=== PATIENT | female | born 1950 | race Caucasian/White ===

== ENCOUNTER → 2020-01-26 09:20 | Outpatient (REF) | payer MEDICARE, SELFPAY ==
--- NOTE | 2020-01-26 | XR_ITS ---
EXAMINATION: RIGHT-SIDED CHEST WALL PAIN CLINICAL INFORMATION: Right-sided chest wall pain COMPARISON: Previous chest x-ray most recent from 2017 TECHNIQUE: Two-view chest FINDINGS: The cardiac silhouette does not appear enlarged. There is a large esophageal hernia that appears unchanged. Hilar and mediastinal contours are otherwise unremarkable. The lungs are clear. There is no pleural effusion or pneumothorax. There are degenerative changes of the thoracic spine. IMPRESSION: No evidence for acute disease in the chest. Large esophageal hernia and degenerative changes of the thoracic spine.
== END ==
LOC: HO.SL 09:20
PROVIDERS: PCP Internal Medicine; Visit Provider Internal Medicine
DX: R07.89 Other chest pain (principal); K44.9 Diaphragmatic hernia without obstruction or gangrene; M51.34 Other intervertebral disc degeneration, thoracic region; R06.81 Apnea, not elsewhere classified
CPT/HCPCS: 71046; 95806

== ENCOUNTER 2020-01-27 08:17 | Outpatient (REF) | payer MEDICARE, SELFPAY ==
--- NOTE | 2020-01-27 13:00 | MHC.AU.P13 ---
Adult Audiological Evaluation Date of Visit: 01/27/20 Reason for Appointment: Difficulty hearing in many listening situations. High-pitched, constant tinnitus bilaterally that started about 6 months ago. Patient reports itchy ear canals. Does patient feel they have a hearing loss?: Yes If Yes, Which Ear?: Both Ears When Was Hearing Difficulty First Noticed?: 6 Months Ago Has hearing been tested previously?: No Hearing Handicap Inventory HHIE SCORE: 38 Based on HHIE score, patient has: Severe perceived hearing handicap Ear History: Ear Deformity: None Reported Recent Ear Drainage: None Reported Recent Ear Pain: None Reported Family History of Hearing Loss?: No Recent Ear Infections: None Reported Ear Infections in Childhood: Both Ears History of Ear Wax Buildup: None Reported Previous Ear Surgery: None Reported Bothersome Tinnitus/Ringing/Noises in Ears: Both Ears Ear used on the phone: Left Ear Blocked/Full Sensation in Ear(s): None Reported 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 Skin in canal appeared red/dry Left Ear: Clear canals. Skin in canal appeared red/dry Tympanometry: Right Ear: Normal Middle Ear System (Type A) Left Ear: Negative Middle Ear Pressure (Type C) Hearing Evaluation: Transducer(s) Used: Insert Earphones Method: Conventional Audiometry Stimuli Used: Pure Tones Right Ear: Description of Hearing: Mild to severe sensorineural hearing loss Left Ear: Description of Hearing: Moderate rising to mild and sloping to profound mixed hearing loss Speech Recognition Threshold (SRT): Method Used: Recorded Lists Stimuli Used: Spondee Words Right Ear: 40 dBHL Left Ear: 45 dBHL Word Discrimination: Method: Recorded Lists Word Lists Used: NU-6 Right Ear: 80% at 70 dBHL (MCL). Increased to 80 dBHL- score improved to 88%. Left Ear: 96% at 70 dBHL Most Comfortable Level (MCL): Right Ear: 70 dBHL Left Ear: 70 dBHL Recommendations: Recommendations: Referral to Ear, Nose, and Throat is recommended to address asymmetrical hearing loss, with a mixed component in the left ear. Patient is interested in amplification. She would like to discuss this with her family first. If ready to proceed, she is encouraged to call our clinic to set up a hearing aid evaluation. Diagnosis: Primary Diagnosis: H90.A32 Mixed HL, Unilateral, Left Ear, W/Restricted Contralateral Services Performed: Services Performed: Comprehensive Audiological Evaluation (CPT 79469) Tympanometry (CPT 23431) Signature: Student/Clinical Fellow: No I have reviewed/agreed with student/fellow documentation: N/A Provider: Pastor Gambino, CCC-A
== END 2020-01-27 08:18 | disposition home or self-care (01) ==
LOC: HO.SH 08:17
PROVIDERS: Visit Provider Internal Medicine
DX: H90.A32 Mixed conductive and sensorineural hearing loss, unilateral, left ear with restricted hearing on the contralateral side (principal)
CPT/HCPCS: 92557; 92567

== ENCOUNTER 2021-01-04 10:01 | Outpatient (REF) | payer MEDICARE, SELFPAY ==
--- NOTE | ~2021-01-04 | FL_ITS ---
EXAMINATION: BARIUM SWALLOW AND UPPER GI CLINICAL INFORMATION: Dysphagia COMPARISON: Previous chest x-ray January 2020 TECHNIQUE: Barium swallow and upper GI were performed using thin and thick barium and effervescent granules. Barium tablet was also administered. FINDINGS: The swallowing mechanism is normal. No aspiration or penetration is seen. No esophageal mass, stricture or evidence of esophagitis is seen. There is a large esophageal hernia or intrathoracic stomach with the majority of the stomach in the chest. There is severe gastroesophageal reflux. No gastric mass, ulcer, or fold thickening is seen. There is no evidence of obstruction. The barium tablet passed into the stomach. Fluoroscopy time 2 minutes. DAP 77 rosa per centimeter squared. 57 saved fluoroscopic images and 5 overhead images. FL/FL upper GI w air w Ba Swallow IMPRESSION: Large esophageal hernia or intrathoracic stomach with the majority of the stomach located in the chest. Significant gastroesophageal reflux.
== END 2021-01-04 10:02 | disposition home or self-care (01) ==
LOC: HO.XRAY 10:01
PROVIDERS: PCP Internal Medicine; Visit Provider Internal Medicine
DX: R13.10 Dysphagia, unspecified (principal); K44.9 Diaphragmatic hernia without obstruction or gangrene
CPT/HCPCS: 74246

== ENCOUNTER → 2021-01-25 08:49 | Outpatient (BNVA) | payer MEDICARE, SELFPAY | PROVIDERS: PCP Internal Medicine; Visit Provider Surgery | DX: K44.9 Diaphragmatic hernia without obstruction or gangrene (principal); R13.10 Dysphagia, unspecified; K21.9 Gastro-esophageal reflux disease without esophagitis; R19.5 Other fecal abnormalities; Z87.891 Personal history of nicotine dependence; Z79.899 Other long term (current) drug therapy | CPT/HCPCS: 99212 ==

== ENCOUNTER 2021-01-30 09:42 | Outpatient (REF) | payer MEDICARE, SELFPAY ==
--- NOTE | ~2021-01-30 | CT_ITS ---
EXAMINATION: CT CHEST WITHOUT CONTRAST CLINICAL INFORMATION: Diaphragmatic hernia COMPARISON: Previous chest x-ray 01/26/[address] December 2016 TECHNIQUE: Multidetector volumetric CT imaging of the chest was done. Axial MIP volume rendering provided. Sagittal and coronal reformatted images were obtained. This CT examination was performed using dose optimization techniques as appropriate, variously including the following: *Automated exposure control *Adjustment of mA and/or kV according to patient size (this includes techniques or standardized protocols for targeted exams where dose is matched to indication/reason for exam; i.e. extremities or head) *Use of iterative reconstruction technique DLP: 240 mGy-cm FINDINGS: LUNGS: There is minimal subsegmental atelectasis at the lung bases. The lungs are otherwise clear. MEDIASTINUM: There is a large esophageal hernia or intrathoracic stomach with the majority of the stomach being located in the chest. This is increased from December 2016 exam. The esophageal hiatus appears widened. The heart does not appear enlarged. There is coronary artery calcification. There is no pericardial effusion. The thoracic aorta is normal in caliber. There are no enlarged hilar or mediastinal lymph nodes. There is a small partially calcified left thyroid nodule that is stable. PLEURA: There is no pleural effusion. No pleural mass or thickening. AXILLA: No lymphadenopathy. OSSEOUS STRUCTURES: There are degenerative changes of the spine. CT/CT chest wo con IMPRESSION: Large esophageal hernia or intrathoracic stomach. The majority of the stomach is in the chest. This is increased from 2017. Coronary artery calcification.
--- NOTE | ~2021-01-30 | CT_ITS ---
EXAMINATION: CT ABDOMEN AND PELVIS WITHOUT CONTRAST CLINICAL INFORMATION: Diaphragmatic hernia COMPARISON: None TECHNIQUE: Multidetector volumetric imaging was performed from the superior aspect of the liver through the pubic symphysis. Sagittal and coronal reformatted images were obtained on the technologist's workstation. This CT examination was performed using dose optimization techniques as appropriate, variously including the following: *Automated exposure control *Adjustment of mA and/or kV according to patient size (this includes techniques or standardized protocols for targeted exams where dose is matched to indication/reason for exam; i.e. extremities or head) *Use of iterative reconstruction technique DLP: 727 mGy-cm FINDINGS: LIVER, GALLBLADDER, AND BILIARY TREE: The liver is normal in size, shape, and attenuation. No focal hepatic lesion or biliary ductal dilatation is present. The gallbladder is unremarkable with no evidence of radiopaque gallstones, gallbladder wall thickening, or obvious pericholecystic inflammatory changes. PANCREAS: Unremarkable. SPLEEN: Unremarkable. ADRENAL GLANDS: Unremarkable. KIDNEYS AND URETERS: The kidneys are normal in size, shape, and attenuation. No hydronephrosis, hydroureter, or calculi seen. No perinephric stranding. BLADDER: Unremarkable. GASTROINTESTINAL TRACT: There is diverticulosis of the colon. No evidence of diverticulitis is seen. Small and large bowel is otherwise unremarkable. The appendix is unremarkable. There is a large esophageal hernia or intrathoracic stomach. The majority of the stomach is in the chest. ABDOMINAL WALL: There are postsurgical changes at anterior abdominal wall. There is a left inguinal hernia containing fat. LYMPH NODES: Normal. VASCULAR: Unremarkable. PELVIC VISCERA: Uterus appears to have been removed. No pelvic mass is seen. OSSEOUS STRUCTURES: There are degenerative changes of the spine and hip joints. CT/CT abdomen pelvis wo con IMPRESSION: Large esophageal hernia or intrathoracic stomach. Diverticulosis of the colon. Left inguinal hernia containing fat.
== END 2021-01-30 09:43 | disposition home or self-care (01) ==
LOC: HO.CT 09:42
PROVIDERS: PCP Internal Medicine; Visit Provider Surgery
DX: K44.9 Diaphragmatic hernia without obstruction or gangrene (principal)
CPT/HCPCS: 71250; 74176

== ENCOUNTER → 2021-02-01 08:56 | Outpatient (BNVA) | payer MEDICARE, SELFPAY | PROVIDERS: PCP Internal Medicine; Visit Provider Nurse Practitioner Family | DX: K21.9 Gastro-esophageal reflux disease without esophagitis (principal); R13.10 Dysphagia, unspecified | CPT/HCPCS: 99202 ==

== ENCOUNTER 2021-02-02 08:26 | Outpatient (REF) | payer MEDICARE, SELFPAY ==
[2021-02-02 08:35] LABS: MANUAL DIFF FLAG NO
[2021-02-02 09:24] LABS: Eosinophils Absolute Auto 0.1 X10*3/uL (0.0-0.4); Eosinophils Percent Auto 3.9 % (0-4); Hematocrit 41.4 % (37-47); Hemoglobin 13.3 g/dl (12.0-16.0); Imm Gran Abs Auto 0.01 X10*3/uL (0.00-0.03); Imm Gran Pct Auto 0.3 % (0.0-0.4); Lymphocytes Absolute Auto 1.1 X10*3/uL (1.2-4.9); Lymphocytes Percent Auto 36.1 % (20-40); Mean Corpuscular HGB Conc 32.1 g/dl (31.0-35.0); Mean Corpuscular Hemoglobin 28.6 pg (27.0-33.0); Mean Platelet Volume 9.2 fL (9.4-12.3); Monocytes Absolute Auto 0.4 X10*3/uL (0.1-1.2); Monocytes Percent Auto 12.3 % (2-11); Neutrophils Absolute Auto 1.4 X10*3/uL (2.0-8.3); Neutrophils Percent Auto 46.4 % (45-73); Platelet Count 305 X10*3/uL (160-400); Red Blood Count 4.65 X10*6/uL (4.20-5.50); Red Cell Distribution Width 15.5 % (11.0-16.0); White Blood Count 3.1 X10*3/uL (4.8-10.8)
[2021-02-02 09:37] LABS: Estimated Average Glucose 103 mg/dL; Hemoglobin A1c % 5.2 %
[2021-02-02 09:56] LABS: Alanine Aminotransferase 11 U/L (0-31); Alkaline Phosphatase 48 U/L (39-117); Anion Gap 9 (12-20); Aspartate Amino Transferase 13 U/L (5-31); Bilirubin Total 0.5 mg/dL (0.0-1.0); Blood Urea Nitrogen 12 mg/dL (9-16); Calcium 9.5 mg/dL (8.4-10.2); Carbon Dioxide 29 mmol/L (22-29); Chloride 108 mmol/L (96-108); Cholesterol 253 mg/dL; Estimated Glomerular Filt Rate > 60; Glucose Random 96 mg/dL (60-115); HDL Cholesterol 61 mg/dL; LDL Cholesterol Calculated 173 mg/dl; Potassium 4.8 mmol/L (3.3-5.1); Sodium 141 mmol/L (135-145); Total Protein 6.3 g/dL (6.5-8.0); Triglycerides 99 mg/dL
[2021-02-02 10:18] LABS: Free T4 (Free Thyroxine) 0.96 ng/dL (0.71-1.85); Thyroid Stimulating Hormone 2.99 uIU/mL (0.32-4.0)
[2021-02-04 08:36] LABS: Folate 12.6 ng/mL (> or = 4.0); Vitamin B12 651 pg/mL (200-900)
== END 2021-02-02 08:27 | disposition home or self-care (01) ==
LOC: HO.LAB 08:26
PROVIDERS: PCP Internal Medicine; Visit Provider Internal Medicine
DX: E78.00 Pure hypercholesterolemia, unspecified (principal); K21.9 Gastro-esophageal reflux disease without esophagitis; R73.02 Impaired glucose tolerance (oral)
CPT/HCPCS: 36415; 80053; 80061; 82306; 82607; 82746; 83036; 84439; 84443; 85025

== ENCOUNTER 2021-02-05 10:31 | Day surgery (SDC) | payer MEDICARE, SELFPAY ==
--- NOTE | 2021-02-01 14:00 | HO.ANESPROP2 ---
Documented by User: Naina Anderson NP 02/01/21 14:01 HPI - Anesthesia Eval Consult details Narrative: 70yo F for Upper Endoscopy Per Thoracic note: 70-year-old woman with a giant paraesophageal hernia that is incarcerated.? Her barium study on 01/04/2021 showed the entire stomach in the chest but possibly some organoaxial rotation.? There is significant reflux also appreciated on barium study.? She did have a CT scan in 2017 which I reviewed showing also a paraesophageal hernia at that time with maybe half the stomach in the chest.? Denies SOB/CP by phone eval. Case reviewed with Dr Charlie VILLALOBOS Active Problems Active Problems: All Active Problems (Updated 02/01/21 @ 09:28 by Gricel Dillon, [facility]) Hypertension (Acute) Hypercholesterolemia (Acute) Impaired glucose tolerance (Acute) Obstructive sleep apnea (Acute) Asthma (Acute) Tracheobronchitis (Acute) Paraesophageal hernia (Acute) Dysphagia (Acute) GERD (gastroesophageal reflux disease) (Acute) Fatty liver (Acute) Guaiac + stool (Acute) Obesity (Acute) Past Medical History Medical History Asthma GERD (gastroesophageal reflux disease) Hypercholesterolemia Hypertension Obesity Obstructive sleep apnea Paraesophageal hernia Thyroid nodule Tubular adenoma of colon Family History Family History Father Prostate cancer Mother Lung cancer Breast cancer Son No problems noted. Surgical History Surgical History History of arthroplasty of left knee History of section History of colonoscopy History of esophagogastroduodenoscopy (EGD) History of knee replacement procedure of right knee History of total abdominal hysterectomy and bilateral salpingo-oophorectomy History of ventral hernia repair S/P thyroid biopsy Social History Social History Housing: Apartment Alcohol intake: current Patient Tobacco Use Status: Former Tobacco user Quit Date: quit 40 yrs ago Tobacco use type: Cigarette Years Smoked: quit 1981 e-Cigarette/Vaping Use: Never Used Second Hand Smoke Exposure: No Use of substances other than those prescribed or required for medical reasons: No Are you DNR?: No Advance Directives: No Advance Directives Information Provided: Yes Patient : No service: No Current occupational status: retired Meds Allergies Allergy/AdvReac Type Severity Reaction Status Date / Time atorvastatin [From LIPITOR] Allergy Unknown LEG CRAMPS Verified 02/01/21 09:04 simvastatin Allergy Unknown leg cramps Verified 02/01/21 09:04 Home Medications Medication Instructions Recorded Confirmed Last Taken Type acetaminophen 325 mg tablet 325 mg PO Q6H PRN tab 03/30/20 01/25/21 Unknown History (Tylenol) albuterol sulfate 2.5 mg INHALATION Q4-6H PRN 03/30/20 01/25/21 Unknown History albuterol sulfate 90 mcg/actuation 2 puff INHALATION Q4-6H PRN 03/30/20 01/25/21 Unknown History aerosol inhaler (ProAir HFA) ascorbate calcium (vitamin C) 500 500 mg PO DAILY 03/30/20 01/25/21 Unknown History mg tablet ferrous sulfate 325 mg (65 mg 325 mg PO DAILY 03/30/20 01/25/21 Unknown History iron) tablet (Feosol) omeprazole 20 mg capsule,delayed 20 mg PO DAILY 03/30/20 01/25/21 Unknown History release pravastatin 80 mg tablet 80 mg PO DAILY 03/30/20 01/25/21 Unknown History Exam Exam Date and Time: February 01, 2021 1400 Assessment and Plan Assessment Anesthesia Assessment: Chart Reviewed Documented by User: Diya Jackson MD 02/05/21 12:05 [facility] Past Medical History Medical History Asthma GERD (gastroesophageal reflux disease) Hypercholesterolemia Hypertension Obesity Obstructive sleep apnea Paraesophageal hernia Thyroid nodule Tubular adenoma of colon Functional capacity: independent ambulation Patient : No Family History Family History Father Prostate cancer Mother Lung cancer Breast cancer Son No problems noted. Family history of problems with anesthesia: No Surgical History Surgical History History of arthroplasty of left knee History of section History of colonoscopy History of esophagogastroduodenoscopy (EGD) History of knee replacement procedure of right knee History of total abdominal hysterectomy and bilateral salpingo-oophorectomy History of ventral hernia repair S/P thyroid biopsy History of Problems with Anesthesia: No Social History Social History Housing: Apartment Alcohol intake: current Patient Tobacco Use Status: Former Tobacco user Quit Date: quit 40 yrs ago Tobacco use type: Cigarette Years Smoked: quit 1981 e-Cigarette/Vaping Use: Never Used Second Hand Smoke Exposure: No Use of substances other than those prescribed or required for medical reasons: No Are you DNR?: No Advance Directives: No Advance Directives Information Provided: Yes Patient : No service: No Current occupational status: retired [employer] Allergies Allergy/AdvReac Type Severity Reaction Status Date / Time atorvastatin [From LIPITOR] Allergy Unknown LEG CRAMPS Verified 02/01/21 09:04 simvastatin Allergy Unknown leg cramps Verified 02/01/21 09:04 Home Medications Medication Instructions Recorded Confirmed Last Taken Type acetaminophen 325 mg tablet 325 mg PO Q6H PRN tab 03/30/20 01/25/21 Unknown History (Tylenol) albuterol sulfate 2.5 mg INHALATION Q4-6H PRN 03/30/20 01/25/21 Unknown History albuterol sulfate 90 mcg/actuation 2 puff INHALATION Q4-6H PRN 03/30/20 01/25/21 Unknown History aerosol inhaler (ProAir HFA) ascorbate calcium (vitamin C) 500 500 mg PO DAILY 03/30/20 01/25/21 Unknown History mg tablet ferrous sulfate 325 mg (65 mg 325 mg PO DAILY 03/30/20 01/25/21 Unknown History iron) tablet (Feosol) omeprazole 20 mg capsule,delayed 20 mg PO DAILY 03/30/20 01/25/21 Unknown History release pravastatin 80 mg tablet 80 mg PO DAILY 03/30/20 01/25/21 Unknown History Exam Airway Mallampati Class: III TM Dist: >3cm Neck ROM: Full Heart: RRR Lungs: CTA Assessment and Plan Final Anesthetic Review Family History of Problems with Anesthesia: No History of Problems with Anesthesia: No
--- NOTE | 2021-02-05 | ECG_ITS ---
Test Reason : PRE OP Blood Pressure : / mmHG Vent. Rate : 063 BPM Atrial Rate : 063 BPM P-R Int : 212 ms QRS Dur : 094 ms QT Int : 418 ms P-R-T Axes : 036 044 026 degrees QTc Int : 427 ms Sinus rhythm with 1st degree A-V block Otherwise normal ECG When compared with ECG of 26-SEP-2004 12:10, No significant change was found Referred By: Naina Anderson Electronically Signed By:BOO YAO MD
[2021-02-05 11:16] LABS: Hematocrit 43.2 % (37-47); Hemoglobin 14.1 g/dl (12.0-16.0); Mean Corpuscular HGB Conc 32.6 g/dl (31.0-35.0); Mean Corpuscular Volume 88.7 fL (80-98); Mean Platelet Volume 8.9 fL (9.4-12.3); Platelet Count 290 X10*3/uL (160-400); Red Blood Count 4.87 X10*6/uL (4.20-5.50); Red Cell Distribution Width 15.3 % (11.0-16.0); White Blood Count 3.9 X10*3/uL (4.8-10.8)
[2021-02-05 11:23] VITALS: BP 139/79; PULSE 64; RESP 16; TEMP 36.3; O2SAT 97; BMI 40.0
[2021-02-05 11:25] LABS: Anion Gap 10 (12-20); Blood Urea Nitrogen 13 mg/dL (9-16); Calcium 9.5 mg/dL (8.4-10.2); Carbon Dioxide 28 mmol/L (22-29); Chloride 108 mmol/L (96-108); Estimated Glomerular Filt Rate > 60; Glucose Fasting 98 mg/dL (60-99); Potassium 4.4 mmol/L (3.3-5.1); Sodium 142 mmol/L (135-145)
[2021-02-05] MEDS: Lactated Ringers 1,000 ML 100 ML IVCONT (11:33)
--- NOTE | 2021-02-05 11:44 | MHC.SHP ---
Pre-Procedural Eval Section A Date of Service: 02/05/21 The patient is an INPATIENT: No Changes since office visit: Yes Patient answered all questions; No Cold of Flu in the past 2 weeks, No New Medical Problems and No Changes in Medication The History & Physical has been completed within 30 days and I have reviewed it.: Yes Section B Chief Complaint: Dysphagia Allergies: Allergies Allergy/AdvReac Type Severity Reaction Status Date / Time atorvastatin [From LIPITOR] Allergy Unknown LEG CRAMPS Verified 02/01/21 09:04 simvastatin Allergy Unknown leg cramps Verified 02/01/21 09:04 Plan I have reviewed the history and physical and performed a pertinent physical examination on my patient. No changes have occurred unless specified.
--- NOTE | 2021-02-05 11:48 | P.BOP_ITS ---
Brief Operative Note Date of Service: 02/05/21 Pre-op diagnosis: GERD, dysphagia, giant paraesophageal hernia that is incarcerated, pre-op EGD prior to surgical repair Post-op diagnosis: same Procedure: FLEXIBLE TRANSORAL UPPER GASTROINTESTINAL ENDOSCOPY WITH BIOPSIES Consent: Indications for the procedure and potential complications of bleeding, perforation, reaction to medications and missed diagnosis were discussed with the patient and informed consent was obtained. Instrument: Olympus GIF H 190 mid size upper endoscope Monitoring: Vital signs and clinical assessment, continuous EKG monitoring, Pulse oximetry, Carbon Dioxide monitoring and blood pressure monitoring were done throughout the procedure. Procedure: The patient was placed in the left lateral decubitis position and pre-procedure medications were administered and a bite block was placed. The endoscope was inserted into the mouth and advanced under direct vision to the third part of duodenum. A careful inspection was made as the upper endoscope was withdrawn including a retroflexed examination of the proximal stomach; Findings and interventions are described below. Findings: Larynx: Normal Esophagus: GE junction at 30 cms, large hiatal hernia 30 to 40 cms. Patchy erythema in the hiatal hernia sac without ulcers or erosions. Irregular Z line - biopsied to check for Gomez's. Stomach: Mild gastric antral erythema. Biopsies were obtained. Grade 4 flap valve on retroflexed examination of the cardia. Duodenum: Normal bulb and descending duodenum Intervention: Biopsies as noted above Impression and Post Procedure Diagnosis: Endoscopy Findings: ESOPHAGUS: GE junction at 30 cms, large hiatal hernia 30 to 40 cms. Patchy erythema in the hiatal hernia sac without ulcers or erosions. Irregular Z line - biopsied to check for Gomez's. STOMACH: Mild gastric antral erythema. Biopsies were obtained. Grade 4 flap valve on retroflexed examination of the cardia. Plan: Await pathology results Patient has an appointment on 02/12/21 in the GI Clinic with Zully Dillon NP. Above findings were reviewed with the patient and Hiatal Hernia handout was given in the discharge area Surgeon: Jake Roa MD Was an Central Office Trouble Shooter used for this Procedure?: No Estimated blood loss (mL): 0 Pathology: other (A. gastric antrum biopsies B. G-E junction, R/O Gomez's) Condition: stable Disposition: PACU
--- NOTE | 2021-02-05 11:49 | P.OP_ITS ---
Operative Note Operative Note Date of Service: 02/05/21 Narrative: Pre-op diagnosis:?GERD, dysphagia, giant paraesophageal hernia that is incarcerated, pre-op EGD prior to surgical repair Post-op diagnosis:?same Procedure:? FLEXIBLE TRANSORAL UPPER GASTROINTESTINAL ENDOSCOPY WITH BIOPSIES Consent:?Indications for the procedure and potential complications of bleeding, perforation, reaction to medications and missed diagnosis were discussed with the patient and informed consent was obtained. Instrument:?Olympus GIF H 190 mid size upper endoscope Monitoring: Vital signs and clinical assessment, continuous EKG monitoring, Pulse oximetry, Carbon Dioxide monitoring and blood pressure monitoring were done throughout the procedure. Procedure:?The patient was placed in the left lateral decubitis position and pre-procedure medications were administered and a bite block was placed. The endoscope was inserted into the mouth and advanced under direct vision to the third part of duodenum. A careful inspection was made as the upper endoscope was withdrawn including a retroflexed examination of the proximal stomach; Findings and interventions are described below. Findings: Larynx:? Normal Esophagus: GE junction at 30 cms, large hiatal hernia 30 to 40 cms.? Patchy erythema in the hiatal hernia sac without ulcers or erosions.? Irregular Z line - biopsied to check for Gomez's. Stomach:?Mild gastric antral erythema. Biopsies were obtained. Grade 4 flap valve on retroflexed examination of the cardia. Duodenum: Normal bulb and descending duodenum Intervention:?Biopsies as noted above Impression and Post Procedure Diagnosis: Endoscopy Findings: ESOPHAGUS: GE junction at 30 cms, large hiatal hernia 30 to 40 cms.? Patchy erythema in the hiatal hernia sac without ulcers or erosions.? Irregular Z line - biopsied to check for Gomez's. STOMACH: Mild gastric antral erythema. Biopsies were obtained. Grade 4 flap valve on retroflexed examination of the cardia. Plan: Await pathology results Patient has an appointment on 02/12/21 in the GI Clinic with Zully Dillon NP. Above findings were reviewed with the patient and Hiatal Hernia handout was given in the discharge area Surgeon:?Jake Roa MD Was an Program Development Manager used for this Procedure?:?No Estimated blood loss (mL):?0 Pathology:?other (A. gastric antrum biopsies? B. G-E junction, R/O Gomez's) Condition:?stable Disposition:?PACU
[2021-02-05 12:20] VITALS: BP 106/66; PULSE 698; RESP 16; TEMP 36.3; O2SAT 93
[2021-02-05 12:49] VITALS: BP 110/74; PULSE 63; RESP 16; TEMP 36.3; O2SAT 99
--- NOTE | 2021-02-06 09:23 | HO.POSTANES ---
Post Anesthesia Evaluation Post Anesthesia Evaluation Anesthesia: Monitored Mental Status: Awake Pain Control: Satisfactory Nausea/Vomiting: None Hydration: Adequate Anesthesia-Related Issues: No Anes. Related Issues
== END 2021-02-05 13:28 | disposition home or self-care (01) ==
PROVIDERS: Nurse Practitioner; PCP Internal Medicine; Visit Provider Internal Medicine Gastroenterology
PROC: 0DJ08ZZ Inspection of Upper Intestinal Tract, Via Natural or Artificial Opening Endoscopic (ICD-10-PCS; CPT 43235; principal; 2021-02-05 14:50)
DX: R13.10 Dysphagia, unspecified (principal); K21.9 Gastro-esophageal reflux disease without esophagitis; K44.0 Diaphragmatic hernia with obstruction, without gangrene; K29.50 Unspecified chronic gastritis without bleeding; K76.0 Fatty (change of) liver, not elsewhere classified; I10 Essential (primary) hypertension; J45.909 Unspecified asthma, uncomplicated; G47.33 Obstructive sleep apnea (adult) (pediatric); Z99.89 Dependence on other enabling machines and devices; Z79.899 Other long term (current) drug therapy; Z88.8 Allergy status to other drugs, medicaments and biological substances; Z87.891 Personal history of nicotine dependence
CPT/HCPCS: 43239; 36415; 80048; 85027; 88305; 88342; 93005

== ENCOUNTER 2021-02-06 08:27 | Outpatient (REF) | payer MEDICARE, SELFPAY ==
--- NOTE | ~2021-02-06 | MM_ITS ---
EXAMINATION: MM SCREENING DIGITAL BREAST TOMOSYNTHESIS, BILATERAL CLINICAL INFORMATION: Screening. Asymptomatic. The lifetime risk of breast cancer based on the Tyrer-Cuzick Model is 6%. COMPARISON: Mammography: 01/04/2019, 10/29/2016 TECHNIQUE: Digital breast tomosynthesis is performed in both the craniocaudal and mediolateral oblique views along with computer-aided detection (CAD). Synthesized 2D images are generated from the tomosynthesis. Additional views are provided: Bilateral MLO, exaggerated left CC, right cleavage. FINDINGS: There are scattered areas of fibroglandular density (ACR BI-RADS breast composition Category b). There are no significant masses, abnormal calcifications, or other abnormalities. There is no developing density. Again, there is biopsy clip marker anterior 12:00 periareolar left breast. There are again scattered bilateral benign round and rim and dermal calcifications. No significant changes. MM/MM tomosynthesis screening BI IMPRESSION: No mammographic evidence of malignancy. ASSESSMENT: BI-RADS 2: Benign RECOMMENDATION: Routine annual mammography screening. This patient's information was entered into a reminder system with a target due date for their next mammogram.
== END 2021-02-06 08:28 | disposition home or self-care (01) ==
LOC: HO.MAMMO 08:27
PROVIDERS: PCP Internal Medicine; Visit Provider Internal Medicine
DX: Z12.31 Encounter for screening mammogram for malignant neoplasm of breast (principal)
CPT/HCPCS: 77063; 77067

== ENCOUNTER → 2021-03-08 08:29 | Outpatient (BNVA) | payer MEDICARE, SELFPAY | PROVIDERS: Referring Provider Internal Medicine; Visit Provider Nurse Practitioner Family | DX: K21.00 Gastro-esophageal reflux disease with esophagitis, without bleeding (principal); R13.10 Dysphagia, unspecified | CPT/HCPCS: 99212 ==

== ENCOUNTER 2021-04-22 12:53 | Outpatient (REF) | payer MEDICARE, SELFPAY | END 2021-04-22 12:54 | disposition home or self-care (01) | LOC: HO.LAB 12:53 | PROVIDERS: Visit Provider Hospitalist | DX: Z20.822 Contact with and (suspected) exposure to COVID-19 (principal); J06.9 Acute upper respiratory infection, unspecified | CPT/HCPCS: U0003; U0005 ==

== ENCOUNTER → 2021-08-06 08:31 | Outpatient (BNVA) | payer MEDICARE, SELFPAY | PROVIDERS: PCP Internal Medicine; Referring Provider Internal Medicine; Visit Provider Nurse Practitioner Family | DX: K44.9 Diaphragmatic hernia without obstruction or gangrene (principal); R13.10 Dysphagia, unspecified; K21.9 Gastro-esophageal reflux disease without esophagitis; I10 Essential (primary) hypertension; E78.00 Pure hypercholesterolemia, unspecified; E66.9 Obesity, unspecified; Z68.41 Body mass index [BMI] 40.0-44.9, adult; Z87.891 Personal history of nicotine dependence; Z88.8 Allergy status to other drugs, medicaments and biological substances | CPT/HCPCS: 99212 ==

== ENCOUNTER 2022-02-11 08:40 | Outpatient (REF) | payer MEDICARE, SELFPAY ==
--- NOTE | ~2022-02-11 | MM_ITS ---
EXAMINATION: MM SCREENING DIGITAL BREAST TOMOSYNTHESIS, BILATERAL CLINICAL INFORMATION: Screening. Asymptomatic. The lifetime risk of breast cancer based on the Tyrer-Cuzick Model is 5%. COMPARISON: Mammography: 02/06/2021, 01/04/2019, 10/29/2016 TECHNIQUE: Digital breast tomosynthesis is performed in both the craniocaudal and mediolateral oblique views along with computer-aided detection (CAD). Synthesized 2D images are generated from the tomosynthesis. Additional right CC x2, left CC, and bilateral MLO views are provided. FINDINGS: There are scattered areas of fibroglandular density (ACR BI-RADS breast composition Category b). There are no significant masses, abnormal calcifications, or other abnormalities. No developing density or interval architectural abnormality. There is a biopsy clip marker again seen anterior left breast. There are scattered round, rim, and dermal calcifications. The axilla are unremarkable. No significant changes. MM/MM tomosynthesis screening BI IMPRESSION: No mammographic evidence of malignancy. ASSESSMENT: BI-RADS 2: Benign RECOMMENDATION: Routine annual mammography screening. This patient's information was entered into a reminder system with a target due date for their next mammogram.
== END 2022-02-11 08:41 | disposition home or self-care (01) ==
LOC: HO.MAMMO 08:40
PROVIDERS: PCP Internal Medicine; Visit Provider Internal Medicine
DX: Z12.31 Encounter for screening mammogram for malignant neoplasm of breast (principal)
CPT/HCPCS: 77063; 77067

== ENCOUNTER 2023-02-17 08:55 | Outpatient (REF) | payer MEDICARE, SELFPAY ==
--- NOTE | ~2023-02-17 | MM_ITS ---
EXAMINATION: MM SCREENING DIGITAL BREAST TOMOSYNTHESIS, BILATERAL CLINICAL INFORMATION: Screening. Asymptomatic. COMPARISON: Mammography: This study is compared with prior exams dating back to 2018. TECHNIQUE: Digital breast tomosynthesis is performed in both the craniocaudal and mediolateral oblique views along with computer-aided detection (CAD). Synthesized 2D images are generated from the tomosynthesis. FINDINGS: There are scattered areas of fibroglandular density (ACR BI-RADS breast composition Category b). There is a focal asymmetry in the upper outer quadrant of the left breast at a middle depth. Additional mammographic imaging of this finding is advised. There is tissue marker in the left breast from prior benign percutaneous biopsy. It lies in the anterior depth. In the right breast, no are no significant masses, abnormal calcifications, or other abnormalities. MM/MM tomosynthesis screening BI IMPRESSION: Focal asymmetry of the upper outer quadrant of the left breast warrants additional mammographic evaluation. Sonography is at the discretion of the diagnostic radiologist. No mammographic signs of malignancy right breast. ASSESSMENT: BI-RADS BI-RADS 0 - Incomplete: Needs additional Imaging. RECOMMENDATION: 1. Additional views of the left 2. Targeted ultrasound if warranted after review of the additional views. 3. Radiology department staff will contact the patient for additional imaging. Additional Imaging required This examination should not preclude the clinical evaluation of a suspicious palpable abnormality. This patient's information was entered into a reminder system with a target due date for their next mammogram.
== END 2023-02-17 08:56 | disposition home or self-care (01) ==
LOC: HO.MAMMO 08:55
PROVIDERS: Visit Provider Internal Medicine
DX: Z12.31 Encounter for screening mammogram for malignant neoplasm of breast (principal)
CPT/HCPCS: 77063; 77067

== ENCOUNTER → 2023-02-17 09:15 | Outpatient (BNV) | payer MEDICARE, SELFPAY | PROVIDERS: Visit Provider Radiology Diagnostic Radiology | DX: Z12.31 Encounter for screening mammogram for malignant neoplasm of breast (principal) | CPT/HCPCS: 77063; 77067 ==

== ENCOUNTER 2023-04-03 07:03 | Outpatient (AMB) | payer MEDICARE, SELFPAY ==
[2023-04-03 07:14] VITALS: BP 130/82; PULSE 74; TEMP 36.3; O2SAT 95; BMI 43.7
--- NOTE | 2023-04-03 07:14 | A.OFFPC_ITS ---
Vital Signs 04/03/23 07:14 Height 5 ft 3 in Weight 247 lb BMI 43.7 BP 130/82 Blood Pressure Location Lt brachial Position Sitting Pulse 74 Pulse Source Pulse Oximeter Temp 97.3 F Pulse Oximetry (%) 95 Oxygen Delivery Method Room Air Intake Visit Reasons: cough for 3 weeks Allergies atorvastatin [From LIPITOR] Allergy (Unknown, Verified 04/03/23 07:15) LEG CRAMPS simvastatin Allergy (Unknown, Verified 04/03/23 07:15) leg cramps Tobacco use date assessed: 04/03/23 Fall risk assessment: No Falls in past year Last assessed Fall Risk: 04/03/23 Dental Screening Dental Screen Date: 04/03/23 Did you have a dental visit in the last 12 months?: Yes Did you have a dental problem in the last 6 months where you did not have access to dental care?: No Was dental information given to patient?: Patient has dentist HPI HPI Comments History of Present Illness Details 72-year-old female past medical history significant for GERD, fatty liver, asthma, MICHELLE on CPAP, hypercholesteremia, hypertension. Patient of has not been seen in 2 years. Patient presents today for cough x3 weeks. Patient reports recently sick at home with pneumonia. Patient states productive cough with green sputum. Denies nasal congestion,fevers, chills. Patient reports using albuterol more frequently 4-5x a day and advair BID. [facility] Medical History (Updated 05/29/22 @ 17:32 by Michelle Rosenberg MD) Exposure to COVID-19 virus Tubular adenoma of colon Obstructive sleep apnea Hypercholesterolemia Obesity GERD (gastroesophageal reflux disease) Hypertension Thyroid nodule Asthma Paraesophageal hernia Surgical History S/P thyroid biopsy History of esophagogastroduodenoscopy (EGD) History of colonoscopy History of arthroplasty of left knee History of knee replacement procedure of right knee History of section History of total abdominal hysterectomy and bilateral salpingo-oophorectomy History of ventral hernia repair Family History (Updated 04/03/23 @ 07:15 by Tena Ambrocio CMA) Father Prostate cancer Mother Lung cancer Breast cancer Son No problems noted. Social History Housing: Apartment Alcohol intake: current Patient Tobacco Use Status: Former Tobacco user Quit Date: quit 40 yrs ago Tobacco use type: Cigarette Years Smoked: quit 1981 e-Cigarette/Vaping Use: Never Used Second Hand Smoke Exposure: No service: No Current occupational status: retired Cognitive needs: No Hearing needs: No Vision needs: No Questionnaire PHQ-9 Over the last 2 weeks, how often have you been bothered by any of the following problems? 1. Little interest or pleasure in doing things: not at all 2. Feeling down, depressed, or hopeless: not at all 3. Trouble falling or staying asleep, or sleeping too much: not at all 4. Feeling tired or having little energy: not at all 5. Poor appetite or overeating: not at all 6. Feeling bad about yourself - or that you are a failure or have let yourself or your family down: not at all 7. Trouble concentrating on things, such as reading the newspaper or watching television: not at all 8. Moving or speaking so slowly that other people could have noticed. Or the opposite - being so fidgety or restless that you have been moving around a lot more than usual: not at all 9. Thoughts that you would be better off or of hurting yourself in some way: not at all Total score: 0 Source: Developed by Drs. Robbin Parada, Jumana Gibson, Willard Barber and colleagues, with an educational kelvin from [employer]. Thrive Questionnaire Date Thrive assessed: 04/03/23 I am a: Patient What is your living situation today?: I have a steady place to live Within the past 12 months, did the food you bought not last and you didn't have the money to get more?: Never true Within the past 12 months, did you worry whether your food would run out before you got money to buy more?: Never true Do you have trouble paying for medicines?: No Do you have trouble getting transportation to medical appointments?: No Do you have trouble paying your heating and electricity bill?: No Do you have trouble taking care of your child, family member or friend?: No Do you have trouble with day-to-day activities such as bathing, preparing meals, shopping, managing finances, etc.?: No Are you currently unemployed and looking for a job?: No Are you interested in more education?: No Currently or been in a relationship where the following occur: no concerns reported AUDIT C Alcohol Use Questionnaire (AUDIT-C) 1. How often do you have a drink containing alcohol?: Monthly or less 2. How many drinks containing alcohol do you have on a typical day when you are drinking?: 1 or 2 3. How often do you have six or more drinks on one occasion?: Never Total Score: 1 BENJAMIN-7 AMB Questionnaire BENJAMIN-7 Date BENJAMIN - 7 assessed: 04/03/23 Feeling nervous, anxious, or on edge: 0 = Not at all Not being able to stop or control worryin = Not at all Worrying too much about different things: 0 = Not at all Trouble relaxin = Not at all Being so restless that it is hard to sit still: 0 = Not at all Becoming easily annoyed or irritable: 0 = Not at all Feeling afraid as if something awful might happen: 0 = Not at all Total BENJAMIN-7 score (0-4 normal; 5-9 mild; 10-14 moderate; 15-21 severe): 0 Source: Developed by Drs. Robbin Parada, Jumana Gibson, Willard Barber and colleagues, with an educational kelvin from [employer]. Review of Systems Const Denies chills, Denies fatigue, Denies fever(s) and Denies poor appetite Eyes Denies no additional complaints ENT Reports Normal hearing present Card Denies chest pain, Denies syncope, Denies rapid heart rate and Denies dyspnea Resp Reports change in phlegm color, Reports chest congestion, Reports cough, Denies dyspnea and Reports wheezing GI Denies change in stool character, Denies constipation, Denies diarrhea, Denies nausea and Denies vomiting Denies urinary frequency, Denies dysuria and Denies urinary urgency Neuro Reports Normal hearing present, Denies confusion and Denies syncope Psych Denies confusion Endo Denies fatigue Aller/Immun Reports wheezing Physical exam (Primary Care) Vital Signs: Last Vital Signs Temp 97.3 F 04/03/23 07:14 Pulse 74 04/03/23 07:14 BP 130/82 04/03/23 07:14 Pulse Ox 95 04/03/23 07:14 Oxygen Delivery Method Room Air 04/03/23 07:14 BMI result Body Mass Index 43.7 Tobacco/Smoking Status: Tobacco use Status Tobacco use date assessed 04/03/23 04/03/23 07:20 Patient Tobacco Use Status Former Tobacco user 04/03/23 07:20 Tobacco use type Cigarette 04/03/23 07:20 e-Cigarette/Vaping Use Never Used 04/03/23 07:20 PHQ-9: PHQ-9 Score PHQ-9: Total score 0 04/03/23 07:28 Thrive Assessment: Date of Thrive Assessment Date Thrive assessed 04/03/23 04/03/23 07:20 Currently or been in a relationship where the following occur: no concerns reported Const General: No confusion Orientation/consciousness: No confusion Neuro General: No confusion Cranial nerves: Yes Normal hearing present Assessment and Plan Assessment & Plan (1) URI (upper respiratory infection): Code(s): J06.9 - Acute upper respiratory infection, unspecified Plan: Azythromycin sent to patients pharmarcy for URI and tessalon pearls for cough. Sings and symptoms reviewed with patient when to follow up or seek medical attention. If no improvement on antibiotics patient advised to call office to follow-up for chest x-ray. Patient agreeable to plan of care. (2) Asthma exacerbation: Code(s): J45.901 - Unspecified asthma with (acute) exacerbation Plan: Prednisone taper sent to patient's pharmacy for asthma exacerbation secondary to upper respiratory infection. Albuterol refill sent. 5 and symptoms reviewed with patient when to follow-up or seek medical attention. Plan Keep scheduled physical with PCP in May or follow-up sooner if needed. Medications: New azithromycin For 250 mg dose pack: take 500 mg today (day 1), then 250 mg for 4 days (days 2-5) PO 6 tabs 0RF benzonatate 100 mg PO TID PRN 30 caps 0RF cough Refilled prednisone 4 tabs QD x 2 days then 3 tabs QD x 2 days then 2 tabs Qd x 2 days then 1 tab QD x 2 days PO daily; 20 tabs 0RF J45.909 - Unspecified asthma, uncomplicated albuterol sulfate 90 mcg/actuation (ProAir HFA) 2 puffs inhalation Q4-6H PRN 8.5 grams 0RF shortness of breath or wheezing Coding Level of Care Code Est Pt Level 3 (61219) Diagnoses URI (upper respiratory infection) J06.9 Asthma exacerbation J45.901
== END 2023-04-03 07:34 | disposition home or self-care (01) ==
PROVIDERS: PCP Internal Medicine; Visit Provider Nurse Practitioner Family
DX: J06.9 Acute upper respiratory infection, unspecified (principal); J45.901 Unspecified asthma with (acute) exacerbation
CPT/HCPCS: 99213

== ENCOUNTER 2023-04-06 14:18 | Outpatient (REF) | payer MEDICARE, SELFPAY ==
--- NOTE | ~2023-04-06 | US_ITS ---
EXAMINATION: MM DIAGNOSTIC DIGITAL BREAST TOMOSYNTHESIS, LEFT US BREAST LIMITED, LEFT MAMMOGRAPHY: CLINICAL INFORMATION: Evaluate focal asymmetry upper outer quadrant left breast seen on screening exam. COMPARISON: Mammography: Screening mammography 02/17/2023, 02/11/2022, 02/06/2021, and dating back to 2017. TECHNIQUE: Digital breast tomosynthesis is performed in the following views: Left 3-D full-field ML view, left 3-D CC spot compression view, and left MLO spot compression views x2. Left breast ultrasound also performed. FINDINGS: There are scattered areas of fibroglandular density (ACR BI-RADS breast composition Category b). There are no persistent masses, areas of architectural distortion, or suspicious calcifications. The focal asymmetry in the upper outer quadrant of the left breast effaces on diagnostic views, consistent with superimposition artifact of normal breast tissue. There is a tissue marker in the anterior left breast from prior benign needle biopsy. ULTRASOUND: CLINICAL INFORMATION: As above. COMPARISON: None TECHNIQUE: Targeted sonographic evaluation was performed using a high frequency linear transducer. Attention was given to the upper outer quadrant of the left breast in the region of concern. Selected archived documentation. FINDINGS: LEFT BREAST: There is a mixture of fatty and fibroglandular tissue. No suspicious mass is seen. There is no pathologic acoustic shadowing. There is no cystic abnormality. There is no ultrasonographic correlate to the region of focal asymmetry left breast. US/US breast LT limited mamm only IMPRESSION: There are no findings suspicious for malignancy in the left breast. Focal asymmetric density does not persist on diagnostic views or ultrasound, and is consistent with overlapping normal fibroglandular tissue. Recommend the patient resume annual screening. OVERALL ASSESSMENT: Mammography: BI-RADS 2 - Benign Findings Ultrasound: BI-RADS 2 - Benign Findings RECOMMENDATION: 1 year F/U Results were provided to the patient at time of visit by the technologist. This patient's information was entered into a reminder system with a target due date for their next mammogram.
== END 2023-04-06 14:19 | disposition home or self-care (01) ==
LOC: HO.MAMMO 14:18
PROVIDERS: PCP Internal Medicine; Visit Provider Internal Medicine
DX: N64.89 Other specified disorders of breast (principal)
CPT/HCPCS: 76642; 77061; 77065

== ENCOUNTER → 2023-04-06 14:30 | Outpatient (BNV) | payer MEDICARE, SELFPAY | PROVIDERS: PCP Internal Medicine; Visit Provider Radiology Diagnostic Radiology | DX: N64.89 Other specified disorders of breast (principal) | CPT/HCPCS: 76642; 77061; 77065 ==

== ENCOUNTER 2023-05-29 10:01 | Outpatient (AMB) | payer MEDICARE, SELFPAY ==
[2023-05-29 10:13] VITALS: BP 140/84; PULSE 70; O2SAT 95; BMI 43.7
--- NOTE | 2023-05-29 10:13 | MHC.PC.OV ---
Intake Visit Reasons: AWV Intake Note: Patient is here for an Annual Wellness Visit. Accompanied by: Self / Same As Patient Allergies atorvastatin [From LIPITOR] Allergy (Unknown, Verified 04/03/23 07:15) LEG CRAMPS simvastatin Allergy (Unknown, Verified 04/03/23 07:15) leg cramps Tobacco use date assessed: 04/03/23 [facility] [place] Medical History (Updated 05/29/22 @ 17:32 by Michelle Rosenberg MD) Exposure to COVID-19 virus Tubular adenoma of colon Obstructive sleep apnea Hypercholesterolemia Obesity GERD (gastroesophageal reflux disease) Hypertension Thyroid nodule Asthma Paraesophageal hernia Surgical History S/P thyroid biopsy History of esophagogastroduodenoscopy (EGD) History of colonoscopy History of arthroplasty of left knee History of knee replacement procedure of right knee History of section History of total abdominal hysterectomy and bilateral salpingo-oophorectomy History of ventral hernia repair Family History (Updated 04/03/23 @ 07:15 by Tena Ambrocio CMA) Father Prostate cancer Mother Lung cancer Breast cancer Son No problems noted. Social History Housing: Apartment Alcohol intake: current Patient Tobacco Use Status: Former Tobacco user Quit Date: quit 40 yrs ago Tobacco use type: Cigarette Years Smoked: quit 1981 e-Cigarette/Vaping Use: Never Used Second Hand Smoke Exposure: No service: No Current occupational status: retired Cognitive needs: No Hearing needs: No Vision needs: No Questionnaire Thrive Questionnaire Date Thrive assessed: 04/03/23 BENJAMIN-7 AMB Questionnaire BENJAMIN-7 Date BENJAMIN - 7 assessed: 04/03/23 Source: Developed by Drs. Robbin Parada, Jumana Gibson, Willard Barber and colleagues, with an educational kelvin from [employer]. Physical exam (Primary Care) Tobacco/Smoking Status: Tobacco use Status Tobacco use date assessed 04/03/23 04/03/23 07:20 Patient Tobacco Use Status Former Tobacco user 04/03/23 07:20 Tobacco use type Cigarette 04/03/23 07:20 e-Cigarette/Vaping Use Never Used 04/03/23 07:20 Thrive Assessment: Date of Thrive Assessment Date Thrive assessed 04/03/23 04/03/23 07:20 Coding
--- NOTE | 2023-05-29 10:25 | A.OFFPC_ITS ---
Vital Signs 05/29/23 10:13 Height 5 ft 3 in Weight 247 lb BMI 43.7 BP 140/84 H Blood Pressure Location Lt brachial Position Sitting Pulse 70 Pulse Source Pulse Oximeter Pulse Oximetry (%) 95 Intake Visit Reasons: AWV Intake Note: Patient is here today for a physical. Kelp Gatherer Required: No Accompanied by: Self / Same As Patient Allergies atorvastatin [From LIPITOR] Allergy (Unknown, Verified 05/29/23 10:21) LEG CRAMPS simvastatin Allergy (Unknown, Verified 05/29/23 10:21) leg cramps Medication List - Last Reconciled 05/29/23 by Michelle Rosenberg MD acetaminophen (Tylenol) 325 mg PO Q6H PRN albuterol sulfate 2.5 mg inhalation Q4-6H PRN albuterol sulfate 90 mcg/actuation (ProAir HFA) 2 puffs inhalation Q4-6H PRN [CPAP AUTO 5-15 cm H20 humidified Air As directed] fluticasone propion-salmeterol 250-50 mcg/dose (Advair Diskus) 1 inh inhalation BID multivitamin 1 tab PO DAILY pravastatin 80 mg PO DAILY 90 days Tobacco use date assessed: 05/29/23 Fall risk assessment: No Falls in past year Last assessed Fall Risk: 05/29/23 Dental Screening Dental Screen Date: 05/29/23 Did you have a dental visit in the last 12 months?: Yes Did you have a dental problem in the last 6 months where you did not have access to dental care?: No Was dental information given to patient?: Patient has dentist HPI AWV HPI Details 72-year-old morbidly obese female with f atty liver GERD obstructive sleep apnea impaired glucose tolerance hypertension hypercholesterolemia last seen in March 2023 for an upper respiratory tract infection. Patient is endoscopy August 2017 last colonoscopy January 2021 mammogram concern about a left breast lesion. Patient is up-to-date with COVID vaccine January 2023 patient had a barium swallow in February 2021 showing mild narrowing of the GE junction which has improved though since February 2021. In February 2021 patient had the DaVinci laparoscopic lysis of adhesions, paraesophageal hernia repair and mesh and fundoplication. This was converted to a physical exam. [facility] Medical History (Updated 05/29/23 @ 10:51 by Michelle Rosenberg MD) Exposure to COVID-19 virus Tubular adenoma of colon Obstructive sleep apnea Hypercholesterolemia Obesity GERD (gastroesophageal reflux disease) Hypertension Thyroid nodule Asthma Paraesophageal hernia Surgical History S/P thyroid biopsy History of esophagogastroduodenoscopy (EGD) History of colonoscopy History of arthroplasty of left knee History of knee replacement procedure of right knee History of section History of total abdominal hysterectomy and bilateral salpingo-oophorectomy History of ventral hernia repair Family History Father Prostate cancer Mother Lung cancer Breast cancer Son No problems noted. Social History (Updated 05/29/23 @ 10:35 by Michelle Rosenberg MD) Housing: Apartment Alcohol intake: current Comment: once a year 1-2 glass of wine Patient Tobacco Use Status: Former Tobacco user Quit Date: quit 40 yrs ago Tobacco use type: Cigarette Years Smoked: quit 1981, cannabis gummy occ e-Cigarette/Vaping Use: Never Used Second Hand Smoke Exposure: No service: No Current occupational status: retired Cognitive needs: No Hearing needs: No Vision needs: No Questionnaire PHQ-9 Over the last 2 weeks, how often have you been bothered by any of the following problems? 1. Little interest or pleasure in doing things: not at all 2. Feeling down, depressed, or hopeless: several days 3. Trouble falling or staying asleep, or sleeping too much: several days 4. Feeling tired or having little energy: not at all 5. Poor appetite or overeating: not at all 6. Feeling bad about yourself - or that you are a failure or have let yourself or your family down: several days 7. Trouble concentrating on things, such as reading the newspaper or watching television: not at all 8. Moving or speaking so slowly that other people could have noticed. Or the opposite - being so fidgety or restless that you have been moving around a lot more than usual: not at all 9. Thoughts that you would be better off or of hurting yourself in some way: not at all Total score: 3 71275 - PHQ-9 Billing: Yes Source: Developed by Drs. Robbin Parada, Jumana Gibson, Willard Barber and colleagues, with an educational kelvin from [employer]. Thrive Questionnaire Date Thrive assessed: 05/29/23 I am a: Patient What is your living situation today?: I have a steady place to live Within the past 12 months, did the food you bought not last and you didn't have the money to get more?: Never true Within the past 12 months, did you worry whether your food would run out before you got money to buy more?: Never true Do you have trouble paying for medicines?: No Do you have trouble getting transportation to medical appointments?: No Do you have trouble paying your heating and electricity bill?: No Do you have trouble taking care of your child, family member or friend?: No Do you have trouble with day-to-day activities such as bathing, preparing meals, shopping, managing finances, etc.?: No Are you currently unemployed and looking for a job?: No Are you interested in more education?: No Please select the resources that you would like help with: None Currently or been in a relationship where the following occur: no concerns reported THRIVE Score: 0 AUDIT C Alcohol Use Questionnaire (AUDIT-C) 1. How often do you have a drink containing alcohol?: Never 3. How often do you have six or more drinks on one occasion?: Never Total Score: 0 BENJAMIN-7 AMB Questionnaire BENJAMIN-7 Date BENJAMIN - 7 assessed: 05/29/23 Feeling nervous, anxious, or on edge: 0 = Not at all Not being able to stop or control worryin = Not at all Worrying too much about different things: 0 = Not at all Trouble relaxin = Not at all Being so restless that it is hard to sit still: 0 = Not at all Becoming easily annoyed or irritable: 0 = Not at all Feeling afraid as if something awful might happen: 0 = Not at all Total BENJAMIN-7 score (0-4 normal; 5-9 mild; 10-14 moderate; 15-21 severe): 0 Source: Developed by Drs. Robbin Parada, Jumana Gibson, Willard Barber and colleagues, with an educational kelvin from [employer]. BENJAMIN-7 Assessment Billing BENJAMIN-7 Assessment Tool: BENJAMIN-7 Assessment 90509 Review of Systems Const Denies poor appetite and Denies weakness Eyes Denies no additional complaints ENT Reports Normal hearing present, Denies dizziness, Denies nasal congestion, Denies tinnitus and Denies sore throat Card Denies chest pain, Denies syncope, Denies rapid heart rate and Denies dyspnea Resp Denies cough and Denies dyspnea GI Denies change in stool character, Reports constipation, Denies diarrhea, Denies nausea and Denies vomiting Denies urinary frequency, Denies difficulty voiding and Denies dysuria Neuro Reports Normal hearing present, Denies confusion, Denies dizziness, Denies syncope and Denies weakness Psych Denies confusion Physical exam (Primary Care) Vital Signs: Last Vital Signs Pulse 70 05/29/23 10:13 BP 140/84 H 05/29/23 10:13 Pulse Ox 95 05/29/23 10:13 BMI result Body Mass Index 43.7 Tobacco/Smoking Status: Tobacco use Status Tobacco use date assessed 04/03/23 04/03/23 07:20 Patient Tobacco Use Status Former Tobacco user 04/03/23 07:20 Tobacco use type Cigarette 04/03/23 07:20 e-Cigarette/Vaping Use Never Used 04/03/23 07:20 Thrive Assessment: Date of Thrive Assessment Date Thrive assessed 04/03/23 04/03/23 07:20 Currently or been in a relationship where the following occur: no concerns reported Const General: No confusion Orientation/consciousness: No confusion HENMT Head: Yes normocephalic Ears: external ears normal and TM's normal bilaterally Face and sinus: Yes normal facial exam Mouth: moist mucous membranes Throat: Yes tonsils normal Eyes Conjunctivae: conjunctivae normal Pupils: Equal, round and reactive pupils present and Pupil accommodation reflex normal Direct Ophthalmoscopy: normal light reflex Neck Neck: No lymphadenopathy Thyroid: Thyroid normal Chest Chest palpation & inspection: normal inspection of the chest Resp Effort & Inspection: normal respiratory effort and no audible wheezes Auscultation: clear to auscultation bilaterally, no crackles, no wheezes and lung sounds not diminished Cardio Rate: regular rate Rhythm: regular rhythm Peripheral pulses: radial pulses present and dorsalis pedis present GI Palpation (GI): no masses Auscultation: normal bowel sounds and normoactive bowel sounds Rectal Exam - Female: deferred Skin General skin exam: no rashes or lesions noted Rashes: no rashes Neuro General: No confusion Cranial nerves: Yes Equal, round and reactive pupils present and Yes Normal hearing present Cognition (Neuro): normal cognition Gait exam (Neuro): Normal gait present Motor exam (neuro): 5/5 motor strength present throughout Deep tendon reflexes (DTR's): Right brachioradialis reflex intensity grade: 2+, Left brachioradialis reflex intensity grade: 2+, Right patellar reflex intensity grade: 2+ and Left patellar reflex intensity grade: 2+ Extrem General: No edema Assessment and Plan Assessment & Plan (1) Annual physical exam: Code(s): Z00.00 - Encounter for general adult medical examination without abnormal findings (2) Obesity: Code(s): E66.9 - Obesity, unspecified Qualifiers: Body mass index: BMI 40.0-44.9 Obesity classification: adult class 3 (BMI >= 40) Obesity type: due to excess calories Serious obesity comorbidity presence: with serious comorbidity Qualified Code(s): E66.01 - Morbid (severe) obesity due to excess calories; Z68.41 - Body mass index [BMI]40.0-44.9, adult Plan: Diet and exercise (3) Fatty liver: Code(s): K76.0 - Fatty (change of) liver, not elsewhere classified Plan: Low-fat diet and exercise (4) GERD (gastroesophageal reflux disease): Code(s): K21.9 - Gastro-esophageal reflux disease without esophagitis Qualifiers: Esophagitis bleeding: without hemorrhage Esophagitis presence: with esophagitis Qualified Code(s): K21.00 - Gastro-esophageal reflux disease with esophagitis, without bleeding Plan: Avoid the foods that causes that usually spicy foods, tomato products, juices, coffee, soda and foods that your sensitive to. After eating do not lie down, allow 3-4 hours before in lie down. And keep the head of bed above 30 degrees to avoid the acid from going up. (5) Asthma: Code(s): J45.909 - Unspecified asthma, uncomplicated Plan: Continue with the inhaler on Advair as well as albuterol (6) Obstructive sleep apnea: Comment: (Moderate MICHELLE - AHI 11.9 - dx on Sleep test 01/26/2020 - on CPAP) Code(s): G47.33 - Obstructive sleep apnea (adult) (pediatric) Plan: will refer to sleep medicine for better CPAP treatment (7) Hypercholesterolemia: Code(s): E78.00 - Pure hypercholesterolemia, unspecified Plan: Avoid fried foods, chicken skin, eggs, butter margarine, pastries and meat. Be it pork or beef they have a lot of cholesterol LDL goal of less than 130 and triglyceride of less than 150. Patient on pravastatin 80 mg once a day (8) Hypertension: Code(s): I10 - Essential (primary) hypertension Plan: monitor the BP at home and record (9) Impaired glucose tolerance: Code(s): R73.02 - Impaired glucose tolerance (oral) Plan: Decrease the amount of carbohydrate intake, pasta, bread, rice and potatoes are all sugar and that is aside from all the sweet stuff, remember that fruits are good but they are Sweet also. (10) Urge incontinence: Code(s): N39.41 - Urge incontinence (11) Age-related osteoporosis without current pathological fracture: Code(s): M81.0 - Age-related osteoporosis without current pathological fracture Orders: Orders Hemoglobin A1c Today R73.02 - Impaired glucose tolerance (oral) Free T4 (Free Thyroxine) Today R73.02 - Impaired glucose tolerance (oral) Complete Blood Count Auto Diff Today R73.02 - Impaired glucose tolerance (oral) Vitamin D 25-OH Total Today R73.02 - Impaired glucose tolerance (oral) Comprehensive Met. Panel Today R73.02 - Impaired glucose tolerance (oral) Thyroid Stimulating Hormone Today R73.02 - Impaired glucose tolerance (oral) Lipid Panel Today E78.00 - Pure hypercholesterolemia, unspecified, R73.02 - Impaired glucose tolerance (oral) Vitamin B12 and Folate Today R73.02 - Impaired glucose tolerance (oral) XR DEXA axial skeleton Today M81.0 - Age-related osteoporosis without current pathological fracture UA CC w/rflx Micro + Cult Today N39.41 - Urge incontinence, R30.0 - Dysuria Referrals Sleep Medicine Referral G47.33 - Obstructive sleep apnea (adult) (pediatric) Medications: New blood pressure monitor (Blood Pressure Kit) As directed 1 ea 0RF I10 - Essential (primary) hypertension oxybutynin chloride ER 5 mg PO DAILY 30 tabs 2RF N39.41 - Urge incontinence Coding Level of Care Code Est Pt Prev Care >65y(91401) Diagnoses Annual physical exam Z00.00 Class 3 severe obesity due to excess calories with serious comorbidity and body mass index (BMI) of 40.0 to 44.9 in adult E66.01; Z68.41 Body mass index: BMI 40.0-44.9 Obesity classification: adult class 3 (BMI >= 40) Obesity type: due to excess calories Serious obesity comorbidity presence: with serious comorbidity Fatty liver K76.0 Gastroesophageal reflux disease with esophagitis without hemorrhage K21.00 Esophagitis bleeding: without hemorrhage Esophagitis presence: with esophagitis Asthma J45.909 Obstructive sleep apnea G47.33 Hypercholesterolemia E78.00 Hypertension I10 Impaired glucose tolerance R73.02 Urge incontinence N39.41 Age-related osteoporosis without current pathological fracture M81.0 Additional Codes BENJAMIN-7 Assessment Billing - BENJAMIN-7 Assessment Tool: BENJAMIN-7 Assessment 32239 ([id number])
== END 2023-05-29 10:59 | disposition home or self-care (01) ==
PROVIDERS: PCP Internal Medicine; Visit Provider Internal Medicine
DX: Z00.00 Encounter for general adult medical examination without abnormal findings (principal); E66.01 Morbid (severe) obesity due to excess calories; Z68.41 Body mass index [BMI] 40.0-44.9, adult; K76.0 Fatty (change of) liver, not elsewhere classified; K21.00 Gastro-esophageal reflux disease with esophagitis, without bleeding; J45.909 Unspecified asthma, uncomplicated; G47.33 Obstructive sleep apnea (adult) (pediatric); E78.00 Pure hypercholesterolemia, unspecified; I10 Essential (primary) hypertension; R73.02 Impaired glucose tolerance (oral); N39.41 Urge incontinence; M81.0 Age-related osteoporosis without current pathological fracture
CPT/HCPCS: 99397

== ENCOUNTER 2023-07-09 09:03 | Outpatient (REF) | payer MEDICARE, SELFPAY ==
--- NOTE | ~2023-07-09 | MM_ITS ---
EXAMINATION: BONE DENSITOMETRY CLINICAL INDICATION: Age-related osteoporosis without current pathological fracture. COMPARISON: Previous BD dated 01/04/2019 and baseline BD dated 04/08/2007. TECHNIQUE: Using a 2U DXA System (software version: 13.1) manufactured by [employer], dual-energy x-ray absorptiometry was performed of the lumbar spine and left hip. The images are of good technical quality. Summary results are attached. FINDINGS: LEFT FEMUR, NECK: Current: BMD 0.967 g/cm2, Z-score 0.5, T-score -0.5, normal. Prior: BMD 1.004 g/cm2. Baseline: BMD 1.084 g/cm2. LEFT FEMUR, TOTAL: Current: BMD 1.065 g/cm2, Z-score 1.2, T-score 0.5, normal, 3.9% decrease from previous, 14.5% decrease from baseline (<5% change is not significant). Prior: BMD 1.108 g/cm2. Baseline: BMD 1.246 g/cm2. AP SPINE L1-L4: Current: BMD 1.456 g/cm2, Z-score 2.8, T-score 2.3, normal, 0.2% increase from previous, 0.2% decrease from baseline (<5% change is not significant). Prior: BMD 1.453 g/cm2. Baseline: BMD 1.459 g/cm2. IDENTIFIED RISK FACTORS: Menopause, hysterectomy, bilateral oophorectomy. HISTORY OF FRACTURE: None listed. MEDICATIONS: Calcium/multivitamin. MM/XR DEXA axial skeleton IMPRESSION: 1. DIAGNOSIS: Normal bone density based on the lowest T-score value of -0.5 in the femoral neck applying World Health Organization criteria. 2. 10-YEAR FRACTURE RISK PREDICTION, FRAX: According to the guidelines, FRAX calculation should only be performed on patients in the osteopenia bone density category. Therefore, FRAX was not performed on this patient. 3. Treatment Recommendations: NOF guidelines recommend consideration for treatment in postmenopausal women and men age 50 and older presenting with the following: -A hip or vertebral (clinical or morphometric) fracture. -T-score less than or equal to -2.5 at the femoral neck or spine after appropriate evaluation to exclude secondary causes. -Low bone mass at the hip or spine and a 10-year fracture probability by FRAX of greater than or equal to 3% for hip fracture or greater than or equal to 20% for major osteoporotic fracture based on the [place] adapted WHO algorithm. 4. Other Recommendations: All treatment decisions require clinical judgment and consideration of individual patient factors, including patient preferences, comorbidities, previous drug use, risk factors not captured in the FRAX model (e.g. frailty, falls, vitamin D deficiency, increased bone turnover, interval significant decline in bone density) and possible under or overestimation of fracture risk by FRAX. FUTURE SCAN RECOMMENDATION: People with diagnosed cases of osteoporosis or at high risk for fracture should have regular bone mineral density tests. For patients eligible for Medicare, routine testing is allowed once every 2 years. The testing frequency can be increased to one year for patients who have rapidly progressing disease, those who are receiving or discontinuing medical therapy to restore bone mass, or have additional risk factors.
== END 2023-07-09 09:04 | disposition home or self-care (01) ==
LOC: HO.MAMMO 09:03
PROVIDERS: Visit Provider Internal Medicine
DX: Z13.820 Encounter for screening for osteoporosis (principal); Z78.0 Asymptomatic menopausal state; M81.0 Age-related osteoporosis without current pathological fracture
CPT/HCPCS: 77080

== ENCOUNTER 2023-08-27 07:43 | Outpatient (REF) | payer MEDICARE, SELFPAY ==
[2023-08-27 07:57] LABS: MANUAL DIFF FLAG NO
[2023-08-27 08:20] LABS: Basophils Absolute Auto 0.1 X10*3/uL (0.0-0.2); Basophils Percent Auto 1.1 % (0-2); Eosinophils Absolute Auto 0.2 X10*3/uL (0.0-0.4); Eosinophils Percent Auto 3.8 % (0-4); Hematocrit 44.3 % (37.0-47.0); Hemoglobin 14.7 g/dl (12.0-16.0); Imm Gran Abs Auto 0.01 X10*3/uL (0.00-0.03); Imm Gran Pct Auto 0.2 % (0.0-0.4); Lymphocytes Absolute Auto 1.5 X10*3/uL (1.2-4.9); Lymphocytes Percent Auto 32.1 % (20-40); Mean Corpuscular HGB Conc 33.2 g/dl (31.0-35.0); Mean Corpuscular Hemoglobin 30.1 pg (27.0-33.0); Mean Corpuscular Volume 90.8 fL (80.0-98.0); Mean Platelet Volume 8.7 fL (9.4-12.3); Monocytes Absolute Auto 0.5 X10*3/uL (0.1-1.2); Monocytes Percent Auto 10.1 % (2-11); Neutrophils Absolute Auto 2.5 x10*3/uL (2.0-8.3); Neutrophils Percent Auto 52.7 % (45-73); Platelet Count 288 X10*3/uL (160-400); Red Blood Count 4.88 X10*6/uL (4.20-5.50); Red Cell Distribution Width 13.2 % (11.0-16.0); White Blood Count 4.7 X10*3/uL (4.8-10.8)
[2023-08-27 08:37] LABS: Estimated Average Glucose 111 mg/dL; Hemoglobin A1c % 5.5 % (<6.0)
[2023-08-27 09:12] LABS: Free T4 (Free Thyroxine) 0.89 ng/dL (0.71-1.85); Thyroid Stimulating Hormone 4.22 uIU/mL (0.32-4.0); Vitamin D 25-OH Total 31.1 ng/mL (>30)
[2023-08-27 09:17] LABS: Alanine Aminotransferase 17 U/L (0-31); Alkaline Phosphatase 53 U/L (39-117); Anion Gap 12 (12-20); Aspartate Amino Transferase 18 U/L (5-31); Bilirubin Total 0.4 mg/dL (0.0-1.0); Blood Urea Nitrogen 17 mg/dL (9-16); Calcium 9.6 mg/dL (8.4-10.2); Carbon Dioxide 26 mmol/L (22-29); Chloride 106 mmol/L (96-108); Cholesterol 182 mg/dL (<200); Estimated Glomerular Filt Rate > 60; Glucose Random 100 mg/dL (60-115); HDL Cholesterol 64 mg/dL (>40); LDL Cholesterol Calculated 96 mg/dL (<100); Potassium 3.8 mmol/L (3.3-5.1); Sodium 140 mmol/L (135-145); Total Protein 6.9 g/dL (6.5-8.0); Triglycerides 110 mg/dL (<150)
[2023-08-27 09:32] LABS: Appearance Urine Clear; Color Urine Yellow; Glucose Urine UA Negative (Negative); Leukocyte Esterase Urine Moderate (2+) (Negative); Nitrite Urine Negative (Negative); PH 6.5 (5.0-9.0); Specific Gravity - Urine 1.015 (1.005-1.025); UMIC TRIGGER UACC YES; Urine Blood Negative (Negative); Urine Ketones Negative (Negative); Urine Protein Negative (Neg-Trace)
[2023-08-27 09:38] LABS: Bacteria Urine None Seen (None Seen); Hyaline Casts Urine 0-2 /LPF (0-2); RBC Urine 0-2 /HPF (0-2); Squamous Epithelial Cell Urine 0-2 /HPF (0-2); UACC Culture Trigger YES
[2023-08-27 09:52] LABS: Folate 10.3 ng/mL (> or = 4.0); Vitamin B12 658 pg/mL (200-900)
== END 2023-08-27 07:44 | disposition home or self-care (01) ==
LOC: HO.LAB 07:43
PROVIDERS: PCP Internal Medicine; Visit Provider Internal Medicine
DX: R73.02 Impaired glucose tolerance (oral) (principal); E78.00 Pure hypercholesterolemia, unspecified; R82.90 Unspecified abnormal findings in urine
CPT/HCPCS: 36415; 80053; 80061; 81001; 82306; 82607; 82746; 83036; 84439; 84443; 85025; 87086

== ENCOUNTER 2023-09-01 09:24 | Outpatient (AMB) | payer MEDICARE, SELFPAY ==
[2023-09-01 09:47] VITALS: BP 122/78; PULSE 77; O2SAT 98; BMI 43.2
--- NOTE | 2023-09-01 09:47 | MHC.PC.OV ---
Vital Signs 09/01/23 09:47 09/01/23 10:10 Height 5 ft 3 in Weight 244 lb BMI 43.2 BP 122/78 124/80 Blood Pressure Location Lt brachial Lt brachial Position Sitting Sitting Pulse 77 Pulse Source Pulse Oximeter Pulse Oximetry (%) 98 Oxygen Delivery Method Room Air Intake Visit Reasons: Blood pressure elevation Allergies atorvastatin [From LIPITOR] Allergy (Unknown, Verified 09/01/23 09:48) LEG CRAMPS simvastatin Allergy (Unknown, Verified 09/01/23 09:48) leg cramps Tobacco use date assessed: 05/29/23 Fall risk assessment: No Falls in past year Last assessed Fall Risk: 09/01/23 Dental Screening Dental Screen Date: 09/01/23 Did you have a dental visit in the last 12 months?: Yes Did you have a dental problem in the last 6 months where you did not have access to dental care?: No Was dental information given to patient?: Patient has dentist HPI Blood pressure elevation HPI Details 73-year-old morbidly obese female GERD, obstructive sleep apnea hypercholesterolemia hypertension impaired glucose tolerance last seen in May 2023. Patient's colonoscopy done in January 2021 mammogram is up-to-date bone density is up-to-date. PAtient has been checking BP and has been high and on checking here is good. use of albuterol twice a week . [facility] was not able to get med. [facility] Medical History (Updated 09/01/23 @ 10:07 by Michelle Rosenberg MD) Exposure to COVID-19 virus Tubular adenoma of colon Obstructive sleep apnea Hypercholesterolemia Obesity GERD (gastroesophageal reflux disease) Hypertension Thyroid nodule Asthma Paraesophageal hernia Surgical History S/P thyroid biopsy History of esophagogastroduodenoscopy (EGD) History of colonoscopy History of arthroplasty of left knee History of knee replacement procedure of right knee History of section History of total abdominal hysterectomy and bilateral salpingo-oophorectomy History of ventral hernia repair Family History Father Prostate cancer Mother Lung cancer Breast cancer Son No problems noted. Social History (Updated 05/29/23 @ 10:35 by Michelle Rosenberg MD) Housing: Apartment Alcohol intake: current Comment: once a year 1-2 glass of wine Patient Tobacco Use Status: Former Tobacco user Quit Date: quit 40 yrs ago Tobacco use type: Cigarette Years Smoked: quit 1981, cannabis gummy occ e-Cigarette/Vaping Use: Never Used Second Hand Smoke Exposure: No service: No Current occupational status: retired Cognitive needs: No Hearing needs: No Vision needs: Yes Questionnaire PHQ-9 Over the last 2 weeks, how often have you been bothered by any of the following problems? 1. Little interest or pleasure in doing things: not at all 2. Feeling down, depressed, or hopeless: not at all 3. Trouble falling or staying asleep, or sleeping too much: several days 4. Feeling tired or having little energy: several days 5. Poor appetite or overeating: not at all 6. Feeling bad about yourself - or that you are a failure or have let yourself or your family down: not at all 7. Trouble concentrating on things, such as reading the newspaper or watching television: not at all 8. Moving or speaking so slowly that other people could have noticed. Or the opposite - being so fidgety or restless that you have been moving around a lot more than usual: not at all 9. Thoughts that you would be better off or of hurting yourself in some way: not at all Total score: 2 Depression Screening Interpretation: Positive Depression Screening Done: Yes 82726 - PHQ-9 Billing: Yes Source: Developed by Drs. Robbin Parada, Jumana Gibson, Willard Barber and colleagues, with an educational kelvin from [employer]. Thrive Questionnaire Date Thrive assessed: 05/29/23 AUDIT C Alcohol Use Questionnaire (AUDIT-C) 1. How often do you have a drink containing alcohol?: Never 3. How often do you have six or more drinks on one occasion?: Never Total Score: 0 BENJAMIN-7 AMB Questionnaire BENJAMIN-7 Date BENJAMIN - 7 assessed: 05/29/23 Source: Developed by Drs. Robbin Parada, Willard Gutierrez and colleagues, with an educational kelvin from [employer]. Physical exam (Primary Care) Vital Signs: Last Vital Signs Pulse 77 09/01/23 09:47 BP 122/78 09/01/23 09:47 Pulse Ox 98 09/01/23 09:47 Oxygen Delivery Method Room Air 09/01/23 09:47 BMI result Body Mass Index 43.2 Tobacco/Smoking Status: Tobacco use Status Tobacco use date assessed 05/29/23 09/01/23 09:52 Patient Tobacco Use Status Former Tobacco user 09/01/23 09:52 Tobacco use type Cigarette 09/01/23 09:52 e-Cigarette/Vaping Use Never Used 09/01/23 09:52 PHQ-9: PHQ-9 Score PHQ-9: Total score 2 09/01/23 09:52 Depression Screening Interpretation: Positive Thrive Assessment: Date of Thrive Assessment Date Thrive assessed 05/29/23 09/01/23 09:52 Const General: alert; No acute distress Eyes Conjunctivae: conjunctivae normal Resp Auscultation: clear to auscultation bilaterally Cardio Rate: regular rate Rhythm: regular rhythm GI Inspection: Yes normal to inspection Extrem General: Yes normal to inspection and No edema Assessment and Plan Assessment & Plan (1) Hypertension: Code(s): I10 - Essential (primary) hypertension Plan: Continue with blood pressure medication. Decrease salt intake and exercise presently on no medication (2) Hypercholesterolemia: Code(s): E78.00 - Pure hypercholesterolemia, unspecified Plan: Avoid fried foods, chicken skin, eggs, butter margarine, pastries and meat. Be it pork or beef they have a lot of cholesterol LDL goal of less than 130 and triglyceride of less than 150. On pravastatin (3) Impaired glucose tolerance: Code(s): R73.02 - Impaired glucose tolerance (oral) Plan: Decrease the amount of carbohydrate intake, pasta, bread, rice and potatoes are all sugar and that is aside from all the sweet stuff, remember that fruits are good but they are Sweet also. (4) Obstructive sleep apnea: Comment: (Moderate MICHELLE - AHI 11.9 - dx on Sleep test 01/26/2020 - on CPAP) Code(s): G47.33 - Obstructive sleep apnea (adult) (pediatric) Plan: Continue to use the CPAP more than 4 hours a night and benefits from (5) Asthma: Code(s): J45.909 - Unspecified asthma, uncomplicated Plan: Continue with albuterol and Advair and remember to rinse mouth after using it (6) GERD (gastroesophageal reflux disease): Code(s): K21.9 - Gastro-esophageal reflux disease without esophagitis Qualifiers: Esophagitis presence: with esophagitis Esophagitis bleeding: without hemorrhage Qualified Code(s): K21.00 - Gastro-esophageal reflux disease with esophagitis, without bleeding Plan: Avoid the foods that causes that usually spicy foods, tomato products, juices, coffee, soda and foods that your sensitive to. After eating do not lie down, allow 3-4 hours before in lie down. And keep the head of bed above 30 degrees to avoid the acid from going up. (7) Obesity: Code(s): E66.9 - Obesity, unspecified Qualifiers: Obesity type: due to excess calories Obesity classification: adult class 3 (BMI >= 40) Serious obesity comorbidity presence: with serious comorbidity Body mass index: BMI 40.0-44.9 Qualified Code(s): E66.01 - Morbid (severe) obesity due to excess calories; Z68.41 - Body mass index [BMI]40.0-44.9, adult Plan: Diet and exercise Medications: New semaglutide (weight loss) (Wegovy) administer weeks 1 through 4 of therapy 0.25 mg (0.5 mL) subcut QWEEK 2 mL 0RF R73.02 - Impaired glucose tolerance (oral) Discontinued tirzepatide (weight loss) (Zepbound) Discontinued Reason: Insurance Denied 2.5 mg (0.5 mL) subcut QWEEK 4 weeks 2 mL 0RF E66.01 - Morbid (severe) obesity due to excess calories, Z68.41 - Body mass index [BMI] 40.0-44.9, adult Coding Level of Care Code Est Pt Level 4 (58311) Diagnoses Hypertension I10 Hypercholesterolemia E78.00 Impaired glucose tolerance R73.02 Obstructive sleep apnea G47.33 Asthma J45.909 Gastroesophageal reflux disease with esophagitis without hemorrhage K21.00 Esophagitis presence: with esophagitis Esophagitis bleeding: without hemorrhage Class 3 severe obesity due to excess calories with serious comorbidity and body mass index (BMI) of 40.0 to 44.9 in adult E66.01; Z68.41 Obesity type: due to excess calories Obesity classification: adult class 3 (BMI >= 40) Serious obesity comorbidity presence: with serious comorbidity Body mass index: BMI 40.0-44.9
[2023-09-01 10:10] VITALS: BP 124/80
== END 2023-09-01 10:23 | disposition home or self-care (01) ==
PROVIDERS: PCP Internal Medicine; Visit Provider Internal Medicine
DX: I10 Essential (primary) hypertension (principal); E66.01 Morbid (severe) obesity due to excess calories; Z68.41 Body mass index [BMI] 40.0-44.9, adult; E78.00 Pure hypercholesterolemia, unspecified; R73.02 Impaired glucose tolerance (oral); G47.33 Obstructive sleep apnea (adult) (pediatric); J45.909 Unspecified asthma, uncomplicated; K21.00 Gastro-esophageal reflux disease with esophagitis, without bleeding
CPT/HCPCS: 99214

== ENCOUNTER 2024-01-21 09:29 | Outpatient (AMB) | payer MEDICARE, SELFPAY ==
[2024-01-21 09:38] VITALS: BP 126/80; PULSE 72; O2SAT 96; BMI 39.0
--- NOTE | 2024-01-21 09:38 | MHC.PC.OV ---
Vital Signs 01/21/24 09:38 Height 5 ft 3 in Weight 220 lb BMI 39.0 BP 126/80 Blood Pressure Location Lt brachial Position Sitting Pulse 72 Pulse Source Pulse Oximeter Pulse Oximetry (%) 96 Oxygen Delivery Method Room Air Intake Visit Reasons: Obesity Intake Note: Patient here for a follow up Obesity Food Service Assistant Required: No Accompanied by: Self / Same As Patient Allergies atorvastatin [From LIPITOR] Allergy (Unknown, Verified 01/21/24 09:39) LEG CRAMPS simvastatin Allergy (Unknown, Verified 01/21/24 09:39) leg cramps Tobacco use date assessed: 05/29/23 Fall risk assessment: No Falls in past year Last assessed Fall Risk: 01/21/24 Dental Screening Dental Screen Date: 09/01/23 HPI Obesity HPI Details 73-year-old obese female with hypertension hypercholesterolemia impaired glucose tolerance obstructive sleep apnea asthma GERD coming in for follow-up. Last seen in August 2023. Noted 24 lb weight loss joined [facility] Medical History (Updated 09/01/23 @ 10:07 by Michelle Rosenberg MD) Exposure to COVID-19 virus Tubular adenoma of colon Obstructive sleep apnea Hypercholesterolemia Obesity GERD (gastroesophageal reflux disease) Hypertension Thyroid nodule Asthma Paraesophageal hernia Surgical History S/P thyroid biopsy History of esophagogastroduodenoscopy (EGD) History of colonoscopy History of arthroplasty of left knee History of knee replacement procedure of right knee History of section History of total abdominal hysterectomy and bilateral salpingo-oophorectomy History of ventral hernia repair Family History Father Prostate cancer Mother Lung cancer Breast cancer Son No problems noted. Social History Housing: Apartment Alcohol intake: current Comment: once a year 1-2 glass of wine Patient Tobacco Use Status: Former Tobacco user Tobacco use type: Cigarette Years Smoked: quit 1981, cannabis gummy occ e-Cigarette/Vaping Use: Never Used Second Hand Smoke Exposure: No service: No Current occupational status: retired Cognitive needs: No Hearing needs: No Vision needs: Yes Questionnaire Thrive Questionnaire Date Thrive assessed: 05/29/23 Are you currently unemployed and looking for a job?: No AUDIT C Alcohol Use Questionnaire (AUDIT-C) 2. How many drinks containing alcohol do you have on a typical day when you are drinking?: 1 or 2 3. How often do you have six or more drinks on one occasion?: Never Total Score: 0 BENJAMIN-7 AMB Questionnaire BENJAMIN-7 Date BENJAMIN - 7 assessed: 05/29/23 Source: Developed by Drs. Robbin Parada, Jumana Gibson, Willard Barber and colleagues, with an educational kelvin from [employer]. Physical exam (Primary Care) Vital Signs: Last Vital Signs Pulse 72 01/21/24 09:38 BP 126/80 01/21/24 09:38 Pulse Ox 96 01/21/24 09:38 Oxygen Delivery Method Room Air 01/21/24 09:38 BMI result Body Mass Index 39.0 Tobacco/Smoking Status: Tobacco use Status Tobacco use date assessed 05/29/23 01/21/24 09:42 Patient Tobacco Use Status Former Tobacco user 01/21/24 09:42 Tobacco use type Cigarette 01/21/24 09:42 e-Cigarette/Vaping Use Never Used 01/21/24 09:42 Thrive Assessment: Date of Thrive Assessment Date Thrive assessed 05/29/23 01/21/24 09:42 Const General: alert; No acute distress Eyes Conjunctivae: conjunctivae normal Resp Auscultation: clear to auscultation bilaterally Cardio Rate: regular rate Rhythm: regular rhythm GI Inspection: Yes normal to inspection Extrem General: Yes normal to inspection and No edema Assessment and Plan Assessment & Plan (1) Obstructive sleep apnea: Comment: (Moderate MICHELLE - AHI 11.9 - dx on Sleep test 01/26/2020 - on CPAP) Code(s): G47.33 - Obstructive sleep apnea (adult) (pediatric) Plan: Continue to use the CPAP more than 4 hours a night and benefits from this. (2) Asthma: Code(s): J45.909 - Unspecified asthma, uncomplicated Plan: Albuterol inhaler as needed and Advair use reminded about rinsing mouth after using (3) GERD (gastroesophageal reflux disease): Code(s): K21.9 - Gastro-esophageal reflux disease without esophagitis Qualifiers: Esophagitis presence: with esophagitis Esophagitis bleeding: without hemorrhage Qualified Code(s): K21.00 - Gastro-esophageal reflux disease with esophagitis, without bleeding Plan: Avoid the foods that causes that usually spicy foods, tomato products, juices, coffee, soda and foods that your sensitive to. After eating do not lie down, allow 3-4 hours before in lie down. And keep the head of bed above 30 degrees to avoid the acid from going up. (4) Obesity: Code(s): E66.9 - Obesity, unspecified Qualifiers: Obesity type: due to excess calories Obesity classification: adult class 3 (BMI >= 40) Serious obesity comorbidity presence: with serious comorbidity Body mass index: BMI 40.0-44.9 Qualified Code(s): E66.01 - Morbid (severe) obesity due to excess calories; Z68.41 - Body mass index [BMI]40.0-44.9, adult Plan: Diet and exercise. Onto his appetite noted 24lb weight loss (5) Hypercholesterolemia: Code(s): E78.00 - Pure hypercholesterolemia, unspecified Plan: Avoid fried foods, chicken skin, eggs, butter margarine, pastries and meat. Be it pork or beef they have a lot of cholesterol on pravastatin LDL goal of less than 130 and triglyceride of less than 150 Coding Level of Care Code Est Pt Level 4 (71200) Diagnoses Obstructive sleep apnea G47.33 Asthma J45.909 Gastroesophageal reflux disease with esophagitis without hemorrhage K21.00 Esophagitis presence: with esophagitis Esophagitis bleeding: without hemorrhage Class 3 severe obesity due to excess calories with serious comorbidity and body mass index (BMI) of 40.0 to 44.9 in adult E66.01; Z68.41 Obesity type: due to excess calories Obesity classification: adult class 3 (BMI >= 40) Serious obesity comorbidity presence: with serious comorbidity Body mass index: BMI 40.0-44.9 Hypercholesterolemia E78.00
== END 2024-01-21 10:01 | disposition home or self-care (01) ==
PROVIDERS: PCP Internal Medicine; Visit Provider Internal Medicine
DX: K21.00 Gastro-esophageal reflux disease with esophagitis, without bleeding (principal); E66.01 Morbid (severe) obesity due to excess calories; Z68.41 Body mass index [BMI] 40.0-44.9, adult; G47.33 Obstructive sleep apnea (adult) (pediatric); J45.909 Unspecified asthma, uncomplicated; E78.00 Pure hypercholesterolemia, unspecified

== ENCOUNTER → 2024-01-21 09:29 | Outpatient (BNVA) | payer MEDICARE, SELFPAY | PROVIDERS: PCP Internal Medicine; Visit Provider Internal Medicine | DX: E66.01 Morbid (severe) obesity due to excess calories (principal); Z68.41 Body mass index [BMI] 40.0-44.9, adult; G47.33 Obstructive sleep apnea (adult) (pediatric); J45.909 Unspecified asthma, uncomplicated; K21.00 Gastro-esophageal reflux disease with esophagitis, without bleeding; E78.00 Pure hypercholesterolemia, unspecified | CPT/HCPCS: 99212 ==

== ENCOUNTER 2024-02-23 09:29 | Outpatient (AMB) | payer MEDICARE, SELFPAY ==
--- NOTE | 2024-02-23 09:30 | A.OFFVIS_ITS ---
Vital Signs 02/23/24 09:31 Height 5 ft 3 in Weight 210 lb 5.136 oz BMI 37.3 BP 112/64 Blood Pressure Location Rt brachial Position Sitting Pulse 80 Pulse Source Pulse Oximeter Pulse Oximetry (%) 96 Oxygen Delivery Method Room Air Intake Visit Reasons: EGD consult. Recall q3 years Intake Note: Relevant Flags or Indicators ? 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 N Ramila presents in office today for a scheduled office visit to re-establish care. Pt is being evaluated for recall EGD x3 years. CC; No recent labs, diagnostics, or med orders placed. ?Pt had labs in 08/[address] Rosenberg. Relevant GI Sx as reported per pt? None ? Hx of any recent surgeries? None Furnace [employer] Or [employer] Required: No Allergies atorvastatin [From LIPITOR] Allergy (Unknown, Verified 02/23/24 09:31) LEG CRAMPS simvastatin Allergy (Unknown, Verified 02/23/24 09:31) leg cramps HPI HPI EGD consult. Recall q3 years: Details: LAST VISIT 08/14/2021 Paraesophageal hernia paraesophageal hernia repair in February [address] Scott. Biological mesh was used. Patient reports that she has been doing well since the procedure. Patient denies any dysphagia, odynophagia or dyspepsia. Dysphagia Status post paraesophageal hernia repair. Patient is very happy, surgery was success and patient is feeling well. She denies any dysphagia. Able to tolerate any food without any trouble swallowing GERD (gastroesophageal reflux disease) patient reports that she has been doing when since her surgery. Denies any dyspepsia dysphagia or odynophagia. Patient is not taking any PPIs or any H2 blockers and is feeling well. No symptoms after meals. Discussed with patient continue avoiding dietary triggers and late night snacking. Staying upright for minimum 3 hours after meals. I will see patient in 1 year to evaluate. Patient will call me sooner if she will have any GI concerning symptoms. Patient is agreeable to this plan and verbalizes understanding of instructions. She was given the opportunity to ask questions and all questions answered. TODAY'S VISIT Patient is here today for follow-up and to discuss going for colonoscopy. His tory tubular adenoma on last colonoscopy in 2019 and recommendation was made for 5 year follow-up. Patient denies any issues with anesthesia in the past. History of sleep apnea. Not on any anticoagulation medication. Patient is on tirzepatide weekly. Patient reports that she has been doing well. Patient denies any GI concerning symptoms today. Denies dyspepsia, dysphagia or odynophagia. Denies melena, hematochezia, unintentional weight loss or ribbon like stools. [facility] Medical History Exposure to COVID-19 virus Tubular adenoma of colon Obstructive sleep apnea Hypercholesterolemia Obesity GERD (gastroesophageal reflux disease) Hypertension Thyroid nodule Asthma Paraesophageal hernia Surgical History S/P thyroid biopsy History of esophagogastroduodenoscopy (EGD) History of colonoscopy History of arthroplasty of left knee History of knee replacement procedure of right knee History of section History of total abdominal hysterectomy and bilateral salpingo-oophorectomy History of ventral hernia repair Family History Father Prostate cancer Mother Lung cancer Breast cancer Son No problems noted. Social History Housing: Apartment Alcohol intake: current Comment: once a year 1-2 glass of wine Patient Tobacco Use Status: Former Tobacco user Tobacco use type: Cigarette Years Smoked: quit 1981, cannabis gummy occ e-Cigarette/Vaping Use: Never Used Second Hand Smoke Exposure: No service: No Current occupational status: retired Cognitive needs: No Hearing needs: No Vision needs: Yes Review of Systems Const Denies weight gain and Denies weight loss ENT Reports no additional complaints, Denies dysphagia and Denies odynophagia Card Reports no additional complaints Resp Reports no additional complaints GI Denies abdominal pain, Denies belching, Denies melena, Denies bloating, Denies change in bowel habits, Denies dysphagia, Denies excessive flatus, Denies dyspepsia, Denies heartburn, Denies diarrhea, Denies loose stools, Denies nausea, Denies odynophagia and Denies vomiting Musc Reports no additional complaints Neuro Reports no additional complaints Psych Reports no additional complaints Endo Reports no additional complaints Physical Exam Vital Signs: Last Vital Signs Pulse 80 02/23/24 09:31 BP 112/64 02/23/24 09:31 Pulse Ox 96 02/23/24 09:31 Oxygen Delivery Method Room Air 02/23/24 09:31 BMI result Body Mass Index 37.3 Const General: healthy appearing, no acute distress and well developed Nutritional Appearance: well nourished Orientation/consciousness: patient oriented x3 HEENT Head: Yes normal to inspection, Yes normocephalic and Yes atraumatic Face and sinus: Yes normal facial exam Mouth: Normal oral and palatal mucosa present Throat: Yes posterior oropharynx normal, Yes tonsils normal and Yes uvula midline Eyes General: appearance normal, both eyes and all related structures Neck Neck: Yes normal visual inspection, Yes full ROM and Yes trachea midline Thyroid: Thyroid normal Resp Effort & Inspection: normal respiratory effort, able to speak in complete sentences, no tracheal deviation and symmetric chest movement Auscultation: clear to auscultation bilaterally Cardio Jugular venous distension: no JVD Rate: regular rate Heart sounds: S1 normal heart sound present, S2 normal heart sound present, no gallops and no murmurs GI Inspection: Yes normal to inspection and No distended Palpation (GI): Soft to palpation, not firm, nontender and No hepatosplenomegaly present Auscultation: normal bowel sounds General: Yes no CVA tenderness Back/Spine/Pelvis Back: no CVA tenderness Skin General skin exam: elasticity normal, turgor normal and dry skin Neuro General: patient oriented x3 Psych Appearance: grossly normal Mental Status: mental status grossly normal Speech and movement: Normal speech and movement present Affect: normal affect Attitude: cooperative Thought process: Normal thought process present Thought content: Normal thought content present Insight: Good insight present (Psych) Judgement: Good judgement present (Psych) Assessment & Plan Assessment & Plan (1) Paraesophageal hernia: Code(s): K44.9 - Diaphragmatic hernia without obstruction or gangrene Category: Medical (2) Dysphagia: Code(s): R13.10 - Dysphagia, unspecified Category: Medical Qualifiers: Dysphagia type: unspecified Qualified Code(s): R13.10 - Dysphagia, unspecified (3) GERD (gastroesophageal reflux disease): Code(s): K21.9 - Gastro-esophageal reflux disease without esophagitis Category: Medical Qualifiers: Esophagitis presence: with esophagitis Esophagitis bleeding: without hemorrhage Qualified Code(s): K21.00 - Gastro-esophageal reflux disease with esophagitis, without bleeding (4) Screen for colon cancer: Code(s): Z12.11 - Encounter for screening for malignant neoplasm of colon Plan What to expect before during and after procedure discussed with patient. Stressed the importance of good bowel prep and clear liquid diet day before procedure. Patient will call us if she will have any GI concerning symptoms. Message sent to surgical schedulers to book procedure for patient. Patient d enies any cardiac or respiratory symptoms. No issues with anesthesia in the past. I will see patient after the procedure basis. She is agreeable to this plan and verbalizes understanding of instructions she was given the opportunity to ask questions and all questions answered. Thank you for allowing me to participate in her care Medications: New bisacodyl (Dulcolax (bisacodyl)) take 4 tabs at noon the day before your colonoscopy 20 mg (4 x 5 mg) PO ONCE 4 tabs 0RF 1 day Z12.11 - Encounter for screening for malignant neoplasm of colon polyethylene glycol 3350 (Miralax) As directed by gastroenterology department at [facility] 238 grams PO ONCE 238 grams 0RF Z12.11 - Encounter for screening for malignant neoplasm of colon Coding Level of Care Code Est Pt Level 3 (72877) Diagnoses Paraesophageal hernia K44.9 Dysphagia, unspecified type R13.10 Dysphagia type: unspecified Gastroesophageal reflux disease with esophagitis without hemorrhage K21.00 Esophagitis presence: with esophagitis Esophagitis bleeding: without hemorrhage Screen for colon cancer Z12.11 Time Spent (min) 30 Comment 20 minutes spent with patient and additional 10 minutes spent reviewing her records
[2024-02-23 09:31] VITALS: BP 112/64; PULSE 80; O2SAT 96; BMI 37.3
== END 2024-02-23 10:30 | disposition home or self-care (01) ==
LOC: HO.HGI 09:29
PROVIDERS: PCP Internal Medicine; Visit Provider Nurse Practitioner Family
DX: K44.9 Diaphragmatic hernia without obstruction or gangrene (principal); R13.10 Dysphagia, unspecified; K21.00 Gastro-esophageal reflux disease with esophagitis, without bleeding; Z12.11 Encounter for screening for malignant neoplasm of colon
CPT/HCPCS: 99213

== ENCOUNTER → 2024-02-23 09:29 | Outpatient (BNVA) | payer MEDICARE, SELFPAY | PROVIDERS: PCP Internal Medicine; Visit Provider Nurse Practitioner Family | DX: Z01.818 Encounter for other preprocedural examination (principal); K21.9 Gastro-esophageal reflux disease without esophagitis; K44.9 Diaphragmatic hernia without obstruction or gangrene; K21.00 Gastro-esophageal reflux disease with esophagitis, without bleeding; R13.10 Dysphagia, unspecified | CPT/HCPCS: 99212 ==

== ENCOUNTER 2024-07-08 14:58 | Outpatient (AMB) | payer MEDICARE, SELFPAY ==
--- NOTE | 2024-07-08 15:03 | AM.OFFVISMDC ---
Intake Vital Signs 07/08/24 15:06 Height 5 ft 3 in Weight 183 lb BMI 32.4 BP 112/68 Blood Pressure Location Lt brachial Position Sitting Pulse 97 Pulse Source Pulse Oximeter Temp 98 F Temp Source Temporal Artery Scan Pulse Oximetry (%) 96 Oxygen Delivery Method Room Air Intake Visit Reasons: [facility] G0439 Intake Note: Patient is here for an Annual Wellness Visit. Hand Therapist Required: No Patient Care Provider: Patient Care Provider offered & declined Accompanied by: Self / Same As Patient Allergies atorvastatin [From LIPITOR] Allergy (Unknown, Verified 07/08/24 15:23) LEG CRAMPS simvastatin Allergy (Unknown, Verified 07/08/24 15:23) leg cramps Medication List - Last Reconciled 07/08/24 by Cherri Aldridge PA-C acetaminophen (Tylenol) 325 mg PO Q6H PRN albuterol sulfate 2.5 mg inhalation Q4-6H PRN albuterol sulfate 90 mcg/actuation (ProAir HFA) 2 puffs inhalation Q4-6H PRN bisacodyl (Dulcolax (bisacodyl)) 20 mg (4 x 5 mg) PO ONCE 1 day blood pressure monitor (Blood Pressure Kit) As directed [CPAP AUTO 5-15 cm H20 humidified Air As directed] fluticasone propion-salmeterol 250-50 mcg/dose (Advair Diskus) 1 inh inhalation BID multivitamin 1 tab PO DAILY oxybutynin chloride ER 5 mg PO DAILY polyethylene glycol 3350 (Miralax) 238 grams PO ONCE pravastatin 80 mg PO DAILY 90 days tirzepatide 12.5 mg subcut QWEEK HPI V G0439 HPI Details 73-year-old female with past medical history of obesity, fatty liver disease, GERD, asthma, obstructive sleep apnea, impaired glucose tolerance, hypercholesterolemia, hypertension last seen 12/2023 coming in for annual wellness eye sees them.? In review of the notes, patient was seen by Gastroenterology 01/2024 for pre colonoscopy. Presenting with an annual wellness examination. The patient reports managed obesity, with significant weight reduction supported by turzepatide, dosed at 12.5 units. Obesity and associated hyperlipidemia and Type 2 Diabetes Mellitus are well-controlled under current regimens. Depression is resolved, correlating with the physical health improvements. Mammogram: Mammogram with ultrasound completed 03/2023 DEXA: Completed 06/2023 Pap smear: No longer recommended Colonoscopy: Had pre colonoscopy screening done 01/2024 COUNTS INCLUDE 234 BEDS AT THE [facility] Medical History Exposure to COVID-19 virus Tubular adenoma of colon Obstructive sleep apnea Hypercholesterolemia Obesity GERD (gastroesophageal reflux disease) Hypertension Thyroid nodule Asthma Paraesophageal hernia Surgical History S/P thyroid biopsy History of esophagogastroduodenoscopy (EGD) History of colonoscopy History of arthroplasty of left knee History of knee replacement procedure of right knee History of section History of total abdominal hysterectomy and bilateral salpingo-oophorectomy History of ventral hernia repair Family History Father Prostate cancer Mother Lung cancer Breast cancer Son No problems noted. Social History Housing: Apartment Alcohol intake: current Comment: once a year 1-2 glass of wine Patient Tobacco Use Status: Former Tobacco user Tobacco use type: Cigarette Years Smoked: quit 1981, cannabis gummy occ e-Cigarette/Vaping Use: Never Used Second Hand Smoke Exposure: No service: No Current occupational status: retired Cognitive needs: No Hearing needs: No Vision needs: Yes Questionnaire Medicare Wellness Checkup [age] What gender do you identify with?: female During the past 4 weeks, how much have you been bothered by emotional problems such as feeling anxious, depressed, irritable, sad or downhearted, and blue?: not at all During the past 4 weeks, has your physical & emotional health limited your social activities with family, friends, neighbors, or groups?: not at all During the past 4 weeks, how much bodily pain have you generally had?: mild pain During the past 4 weeks, was someone available to help you if you needed & wanted help?: yes, as much as I wanted During the past 4 weeks, what was the hardest physical activity you could do for at least 2 minutes?: heavy Can you get to places out of walking distance without help? (For eg., can you travel alone on buses, taxis or drive your car?): Yes Can you go shopping for groceries or clothes without someone's help?: Yes Can you prepare your own meals?: Yes Can you do your housework without help?: Yes Because of any health problems, do you need the help of another person with your personal care needs such as eating, bathing, dressing or getting around the house?: No Can you handle your own money without help?: Yes During the past 4 weeks, how would you rate your health in general?: excellent During the past 4 weeks how have things been going for you?: very well; could hardly better Are you having difficulties driving your car?: no Do you always fasten your seat belt when you are in a car?: yes, usually During past 4 weeks, have you been bothered by the following: never: Falling or dizzy when standing up, Sexual problems?, Trouble eating well?, Teeth or denture problems?, Problems using the telephone? and Tiredness or fatigue? Have you fallen 2 or more times in the past year?: No Are you afraid of falling?: Yes Are you a smoker?: no During the past 4 weeks, how many drinks of wine, beer, or other alcoholic beverages did you have?: no alcohol at all Do you exercise for about 20 minutes 3 or more times a week?: yes, all the time Have you been given information to help with the following?: no: Hazards in your house that might hurt you? and no: Keeping track of your medications? How often do you have trouble taking medicines the way you have been told to take them?: sometimes I take medicine as prescribed How confident are you that you can control & manage most of your health problems?: very confident What is your race?: White PHQ-9 Over the last 2 weeks, how often have you been bothered by any of the following problems? 1. Little interest or pleasure in doing things: not at all 2. Feeling down, depressed, or hopeless: not at all 3. Trouble falling or staying asleep, or sleeping too much: several days 4. Feeling tired or having little energy: not at all 5. Poor appetite or overeating: not at all 6. Feeling bad about yourself - or that you are a failure or have let yourself or your family down: not at all 7. Trouble concentrating on things, such as reading the newspaper or watching television: not at all 8. Moving or speaking so slowly that other people could have noticed. Or the opposite - being so fidgety or restless that you have been moving around a lot more than usual: not at all 9. Thoughts that you would be better off or of hurting yourself in some way: not at all Total score: 1 Depression Screening Interpretation: Negative Depression Screening Done: Yes Source: Developed by Drs. Robbin Parada, Jumana Gibson, Willard Barber and colleagues, with an educational kelvin from [employer]. Thrive Questionnaire Date Thrive assessed: 07/08/24 I am a: Patient What is your living situation today?: I have a steady place to live Within the past 12 months, did the food you bought not last and you didn't have the money to get more?: Never true Within the past 12 months, did you worry whether your food would run out before you got money to buy more?: Never true Do you have trouble paying for medicines?: No Do you have trouble getting transportation to medical appointments?: No Do you have trouble paying your heating and electricity bill?: No Do you have trouble taking care of your child, family member or friend?: No Do you have trouble with day-to-day activities such as bathing, preparing meals, shopping, managing finances, etc.?: No Are you currently unemployed and looking for a job?: No Are you interested in more education?: No Please select the resources that you would like help with: None Currently or been in a relationship where the following occur: No concerns reported THRIVE Score: 0 BENJAMIN-7 AMB Questionnaire BENJAMIN-7 Date BENJAMIN - 7 assessed: 07/08/24 Feeling nervous, anxious, or on edge: 0 = Not at all Not being able to stop or control worryin = Not at all Worrying too much about different things: 0 = Not at all Trouble relaxin = Not at all Being so restless that it is hard to sit still: 0 = Not at all Becoming easily annoyed or irritable: 0 = Not at all Feeling afraid as if something awful might happen: 0 = Not at all Total BENJAMIN-7 score (0-4 normal; 5-9 mild; 10-14 moderate; 15-21 severe): 0 Source: Developed by Drs. Robbin Parada, Jumana Gibson, Willard Barber and colleagues, with an educational kelvin from [employer]. AUDIT C Alcohol Use Questionnaire (AUDIT-C) 2. How many drinks containing alcohol do you have on a typical day when you are drinking?: 1 or 2 3. How often do you have six or more drinks on one occasion?: Never Total Score: 0 Review of Systems Const Denies body aches, Denies chills, Denies fever(s), Denies headache(s) and Denies poor appetite Eyes Reports no additional complaints ENT Denies dysphagia, Denies dizziness, Denies headache(s) and Denies odynophagia Card Denies chest pain, Denies syncope, Denies edema, Denies irregular heart rhythm, Denies lightheadedness and Denies dyspnea Resp Denies cough and Denies dyspnea GI Denies abdominal pain, Denies constipation, Denies dysphagia, Denies diarrhea, Denies nausea, Denies odynophagia and Denies vomiting Reports no additional complaints Musc Reports no additional complaints and Denies abnormal gait Skin/Breast Reports system reviewed and no additional complaints, except as documented Neuro Denies abnormal gait, Denies dizziness, Denies syncope and Denies headache(s) Psych Reports no additional complaints Physical Exam Vital Signs: Last Vital Signs Temp 98 F 07/08/24 15:06 Pulse 97 07/08/24 15:06 BP 112/68 07/08/24 15:06 Pulse Ox 96 07/08/24 15:06 Oxygen Delivery Method Room Air 07/08/24 15:06 BMI result Body Mass Index 32.4 Const General: cooperative, healthy appearing, comfortable and no acute distress Orientation/consciousness: patient oriented x3 HEENT Head: Yes normocephalic Ears: hearing grossly normal bilaterally General nose exam: Normal external nose present Eyes General: appearance normal, both eyes and all related structures Conjunctivae: conjunctivae normal Neck Neck: Yes full ROM and Yes no lymphadenopathy Resp Effort & Inspection: normal respiratory effort Auscultation: clear to auscultation bilaterally, no crackles, no rales, no rhonchi and no wheezes Cardio Rate: regular rate Rhythm: regular rhythm Skin General skin exam: no rashes or lesions noted Neuro General: patient oriented x3 Gait exam (Neuro): Normal gait present Extrem General: Yes normal to inspection, Yes full ROM and No edema Psych Affect: normal affect Attitude: cooperative Insight: Good insight present (Psych) Judgement: Good judgement present (Psych) Assessment & Plan Assessment & Plan (1) Urge incontinence: Code(s): N39.41 - Urge incontinence Plan: Continue on oxybutynin. (2) Hypertension: Code(s): I10 - Essential (primary) hypertension Plan: Continue on current blood pressure medication. Avoid salt intake and encourage healthy diet and regular exercise. (3) Hypercholesterolemia: Code(s): E78.00 - Pure hypercholesterolemia, unspecified Plan: Avoid foods that are high in cholesterol such as red meat, fried foods, eggs and baked goods. Triglyceride goal of less than 150 and LDL goal of less than 100. Continue on Pravastatin (4) Impaired glucose tolerance: Code(s): R73.02 - Impaired glucose tolerance (oral) Plan: Decrease the amount of carbohydrates such as pasta, bread, rice, and potatoes and limit the amount of sweets. Although fruits are generally healthy they should be eaten in moderation as they are still high in sugar. (5) Obstructive sleep apnea: Comment: (Moderate MICHELLE - AHI 11.9 - dx on Sleep test 01/26/2020 - on CPAP) Code(s): G47.33 - Obstructive sleep apnea (adult) (pediatric) Plan: Uses CPAP faithfully at least 4 hours a night and benefits from this therapy. (6) Asthma: Code(s): J45.909 - Unspecified asthma, uncomplicated Plan: Asthma currently controlled on present medications. Continue on albuterol as needed.? Avoid triggers such as allergies. (7) GERD (gastroesophageal reflux disease): Code(s): K21.9 - Gastro-esophageal reflux disease without esophagitis Qualifiers: Esophagitis presence: with esophagitis Esophagitis bleeding: without hemorrhage Qualified Code(s): K21.00 - Gastro-esophageal reflux disease with esophagitis, without bleeding Plan: Avoid trigger foods such as citrus, tomato products, soda, caffeine, spicy foods and other foods that may be irritating to your stomach. Avoid laying flat 3-4 hours after eating and elevate the head of the bed 30 degrees to prevent acid from moving into the esophagus. (8) Fatty liver: Code(s): K76.0 - Fatty (change of) liver, not elsewhere classified Plan: Healthy diet and regular exercise is encouraged. Continue to follow LFTs. (9) Obesity: Code(s): E66.9 - Obesity, unspecified Qualifiers: Obesity type: due to excess calories Obesity classification: adult class 3 (BMI >= 40) Serious obesity comorbidity presence: with serious comorbidity Body mass index: BMI 40.0-44.9 Qualified Code(s): E66.01 - Morbid (severe) obesity due to excess calories; Z68.41 - Body mass index [BMI]40.0-44.9, adult Plan: Healthy diet and regular exercise is encouraged. Noted 27 pound weight loss since last visit. (10) Annual wellness visit: Code(s): Z00.00 - Encounter for general adult medical examination without abnormal findings Plan: Patient is up-to-date on all recommended routine screenings and vaccinations for her age. She is unsure if she is due on her mammogram referral was placed. Ordered for updated blood work and plan to follow up in 3 months for review of blood work. [place] of care was reviewed with patient patient was provided with a written screening schedule. Healthcare proxy/ MOLST forms were reviewed with patient patient advised to bring completed forms to office to be scanned to chart. Patient has good cognition in his able to make informed decisions about her healthcare. Plan This note was constructed using voice recognition software. While every effort has been made to ensure accuracy and single end sewer, still areas may have been included sometimes these areas may affect the content or meeting of the given symptoms. Total time spent caring for the patient today was 30 minutes. This includes time spent before the visit reviewing the chart, time spent during the visit, and time spent after the visit and documentation. Patient was informed and verbally consented to the use of an ambient scribe for clinic note documentation during this visit. Orders: Orders MM tomosynthesis screening BI Today Z12.31 - Encounter for screening mammogram for malignant neoplasm of breast Hemoglobin A1c Today R73.02 - Impaired glucose tolerance (oral) Complete Blood Count Auto Diff Today Z00.00 - Encounter for general adult medical examination without abnormal findings Comprehensive Met. Panel Today Z00.00 - Encounter for general adult medical examination without abnormal findings Vitamin D 25-OH Total Today Z00.00 - Encounter for general adult medical examination without abnormal findings TSH reflex Free T4 Today Z00.00 - Encounter for general adult medical examination without abnormal findings Vitamin B12 and Folate Today Z00.00 - Encounter for general adult medical examination without abnormal findings Lipid Panel Today E78.00 - Pure hypercholesterolemia, unspecified Quality Reporting (2019) Depression/Bipolar (159/160/161/177) PHQ-9: Total score: 1 Coding Level of Care Code Medicare Subsequent (G0439) Diagnoses Urge incontinence N39.41 Hypertension I10 Hypercholesterolemia E78.00 Impaired glucose tolerance R73.02 Obstructive sleep apnea G47.33 Asthma J45.909 Gastroesophageal reflux disease with esophagitis without hemorrhage K21.00 Esophagitis presence: with esophagitis Esophagitis bleeding: without hemorrhage Fatty liver K76.0 Class 3 severe obesity due to excess calories with serious comorbidity and body mass index (BMI) of 40.0 to 44.9 in adult E66.01; Z68.41 Obesity type: due to excess calories Obesity classification: adult class 3 (BMI >= 40) Serious obesity comorbidity presence: with serious comorbidity Body mass index: BMI 40.0-44.9 Annual wellness visit Z00.00 CPT Codes Advance Care Planning - Time spent: 1-15 minutes, not on file ([id number]) Advance Care Planning Advance Care Planning discussion: Completed/Scanned Who was present: Patient Forms completed: Health Care Proxy and MOLST Time spent: 1-15 minutes, not on file Actual minutes spent: 10
[2024-07-08 15:06] VITALS: BP 112/68; PULSE 97; TEMP 36.6; O2SAT 96; BMI 32.4
--- OUTSIDE RECORDS SUMMARY | 2024-07-08 16:21 | XMS_ITS | Clinical Summary ---
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 Name Role Phone Michelle Rosenberg MD Primary Care Provider [phone] Surgical History Surgery Date Site/Laterality Comments OTHER SURGICAL HISTORY PROCEDURE: CO LAPT RPR PARAESOPH HIATAL HERNIA W/MESH Medical History Medical History Date Comments Mild intermittent asthma, uncomplicated DX:Mild intermittent asthma, uncomplicated Mixed hyperlipidemia DX:Mixed hy perlipidemia GERD (gastroesophageal reflux disease) DX:GERD (gastroesophageal reflux disease) Paraesophageal hernia DX:Paraeso phageal hernia Family History Medical History Relation Name Comments Other cancer Father Lung cancer Mother Relation Name Status Comments Brother Alive Father Mother Social History Tobacco Use Types Packs/Day Years Used Date Smoking Tobacco: Former Cigarettes Q uit: 04/27/1981 Alcohol Use Standard Drinks/Week Comments Yes 0 (1 standard drink = 0.6 oz pur e alcohol) Comments Unknown Sex and Gender Information Value Date Recorded Sex Assigned at Not on file Legal Sex Female 9:37 AM EST Gender Identity Not on file Sexual Orientation Not on file Obstetrics History Plan of Treatment Health Maintenance Due Date Last Done Comments Breast Cancer Screening 1950 DTaP,Tdap,and Td Vaccines (1 - Tdap) 08/25/1970 Pneumococcal Vaccine: 50+ Ye ars (1 of 1 - PCV) 08/25/2001 Zoster Vaccines (1 of 2) 08/25/2001 COVID-19 Vaccine (2023-2 5 season) 2023 Influenza Vaccine (#1) 2023 RSV Immunization Patients 60 + Years Old (1 - 1-dose 75+ series) 08/25/2026 HIB Vaccines Aged Out No longer eligi ble based on patient's age to complete this topic HPV Vaccines Aged Out No longer eligi ble based on patient's age to complete this topic Hepatitis A Vaccines Aged Out No long er eligible based on patient's age to complete this topic Hepatitis B Vaccines Aged Out No long er eligible based on patient's age to complete this topic IPV Vaccines Aged Out No longer eligi ble based on patient's age to complete this topic MMR Vaccines Aged Out No longer eligi ble based on patient's age to complete this topic Meningococcal ACWY Vaccine Aged Out N o longer eligible based on patient's age to complete this topic Meningococcal B Vacine Aged Out No lo nger eligible based on patient's age to complete this topic RSV Immunization Patients Un oyng 20 months Aged Out No longer eligible b ased on patient's age to complete this topic Varicella Vaccines Aged Out No longer eligible based on patient's age to complete this topic Advance Directives Documents on File Type Date Recorded 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
== END 2024-07-08 15:54 | disposition home or self-care (01) ==
LOC: HO.HMCH 14:59
PROVIDERS: PCP Internal Medicine
DX: Z00.00 Encounter for general adult medical examination without abnormal findings (principal); N39.41 Urge incontinence; E66.01 Morbid (severe) obesity due to excess calories; Z68.41 Body mass index [BMI] 40.0-44.9, adult; I10 Essential (primary) hypertension; E78.00 Pure hypercholesterolemia, unspecified; R73.02 Impaired glucose tolerance (oral); G47.33 Obstructive sleep apnea (adult) (pediatric); J45.909 Unspecified asthma, uncomplicated; K21.00 Gastro-esophageal reflux disease with esophagitis, without bleeding; K76.0 Fatty (change of) liver, not elsewhere classified

== ENCOUNTER → 2024-07-08 14:58 | Outpatient (BNVA) | payer MEDICARE, SELFPAY | PROVIDERS: PCP Internal Medicine ==

== ENCOUNTER 2024-07-25 10:28 | Day surgery (SDC) | payer MEDICARE, SELFPAY ==
[2024-07-21 11:25] VITALS: BMI 37.2
[2024-07-25 10:51] VITALS: BP 127/79; PULSE 79; RESP 16; TEMP 36.8; O2SAT 99; BMI 31.2
[2024-07-25] MEDS: Lactated Ringers 1,000 ML 100 ML IVCONT (11:15)
--- NOTE | 2024-07-25 11:18 | MHC.SHP ---
Pre-Procedural Eval Section A - 24 Hr Update-Section A only Date of Service: 07/25/24 The patient is an INPATIENT: No The patient has been examined within 24 hours of the surgical procedure. The History & Physical has been completed within 30 days and I have reviewed it.: No Section B - Complete if H&P > 30 days Chief Complaint: Surveillance for colon polyps Relevant Family History (Specify if Yes): No Relevant Social History: Tobacco Use (Former smoker) Present Medications: see Short Stay Collaborative assessment Medical History: Significant History (Tubular adenoma of colon Obstructive sleep apnea Hypercholesterolemia Obesity GERD (gastroesophageal reflux disease) Hypertension Thyroid nodule Asthma Paraesophageal hernia) History of Previous Operations: Relevant previous surgery/procedure and date(s) (S/P thyroid biopsy History of esophagogastroduodenoscopy (EGD) History of colonoscopy History of arthroplasty of left knee History of knee replacement procedure of right knee History of section History of total abdominal hysterectomy and bilateral salpingo-oophorectomy History of ventral he) Allergies: Allergies Allergy/AdvReac Type Severity Reaction Status Date / Time atorvastatin [From LIPITOR] Allergy Unknown LEG CRAMPS Verified 07/25/24 10:47 simvastatin Allergy Unknown leg cramps Verified 07/25/24 10:47 Review of Systems Sugical H&P ROS: Negative: Constitution, Cardiovascular, Respiratory and Gastrointestinal Exam Surgical H&P Exam: Normal: Heart, Normal: Lungs, Normal: Extremities and Normal: Abdomen Plan Diagnosis/Plan: Unchanged I have reviewed the history and physical and performed a pertinent physical examination on my patient. No changes have occurred unless specified. Time Spent With Patient Time: Total time managing care of this patient today ____ minutes.
--- NOTE | 2024-07-25 11:42 | P.CONAN_ITS ---
[facility] Active Problems Active Problems: All Active Problems Annual wellness visit (Acute) Urge incontinence (Acute) COVID-19 virus infection (Acute) Multiple pigmented nevi (Acute) URI (upper respiratory infection) (Acute) Guaiac + stool (Acute) Dysphagia (Acute) Tracheobronchitis (Acute) Fatty liver (Acute) Impaired glucose tolerance (Acute) Hypertension (Acute) Hypercholesterolemia (Acute) Obstructive sleep apnea (Acute) Asthma (Acute) Paraesophageal hernia (Acute) GERD (gastroesophageal reflux disease) (Acute) Obesity (Acute) Past Medical History Medical History Tubular adenoma of colon Obstructive sleep apnea Hypercholesterolemia Obesity GERD (gastroesophageal reflux disease) Hypertension Thyroid nodule Asthma Paraesophageal hernia Family History Family History Father Prostate cancer Mother Lung cancer Breast cancer Son No problems noted. Family history of problems with anesthesia: No Surgical History Surgical History S/P thyroid biopsy History of esophagogastroduodenoscopy (EGD) History of colonoscopy History of arthroplasty of left knee History of knee replacement procedure of right knee History of section History of total abdominal hysterectomy and bilateral salpingo-oophorectomy History of ventral hernia repair History of Problems with Anesthesia: No Social History Social History Housing: Apartment Alcohol intake: current Alcohol intake frequency: holidays/special occasions only Comment: once a year 1-2 glass of wine Patient Tobacco Use Status: Former Tobacco user Tobacco use type: Cigarette Years Smoked: quit 1981, cannabis gummy occ e-Cigarette/Vaping Use: Never Used Second Hand Smoke Exposure: No Use of substances other than those prescribed or required for medical reasons: No Are you DNR?: No Advance Directives: No Advance Directives Information Provided: Yes service: No Current occupational status: retired Cognitive needs: No Hearing needs: No Vision needs: Yes Meds Allergies Allergy/AdvReac Type Severity Reaction Status Date / Time atorvastatin [From LIPITOR] Allergy Unknown LEG CRAMPS Verified 07/25/24 10:47 simvastatin Allergy Unknown leg cramps Verified 07/25/24 10:47 Active Medications: Current Medications Lactated Ringer's (Lr) 1,000 mls @ 100 mls/hr IVCONT .Q10H MILO Last Admin: 07/25/24 11:15 Dose: 100 mls/hr Home Medications ?Medication ?Instructions ?Recorded ?Confirmed ?Last Taken ?Type acetaminophen 325 mg tablet 325 mg PO Q6H PRN PAIN,FEVER 03/30/20 07/25/24 Unknown History (Tylenol) albuterol sulfate 2.5 mg/3 mL 2.5 mg inhalation Q4-6H PRN SOB 03/30/20 07/25/24 Unknown History (0.083 %) solution for nebulization multivitamin 1 tab PO DAILY 03/05/21 07/25/24 Unknown History tirzepatide 12.5 mg/0.5 mL 12.5 mg subcut QWEEK 07/08/24 07/25/24 07/16/24 History subcutaneous pen injector Exam Height,Weight and Vital Signs: Height 5 ft 3 in Weight 79.832 kg Last Vital Signs Temp 98.3 F 07/25/24 10:51 Pulse 79 07/25/24 10:51 Resp 16 07/25/24 10:51 BP 127/79 07/25/24 10:51 Pulse Ox 99 07/25/24 10:51 O2 Del Method Room Air 07/25/24 10:51 Airway Mallampati Class: III TM Dist: >3cm Neck ROM: Full Loose/Missing/Broken Teeth: No Heart: RRR Lungs: CTA Assessment and Plan Assessment Anesthesia Assessment: Anesthesia Plan Discussed and Chart Reviewed Final Anesthetic Review Family History of Problems with Anesthesia: No History of Problems with Anesthesia: No NPO: Yes ASA Class: III Final Preanesthetic Review: Meds/Allgs Chart Reviewed, Consent Obtained/Reviewed and Anes Risks/Benef Reviewed Patient Risk: Intermediate Procedure Risk: Low Anesthetic Plan Anesthetic Plan: MAC: Disposition: Standard PACU
--- NOTE | 2024-07-25 13:05 | HO.OPN-COLON ---
Colonoscopy Operative Note Operative Note Date of Service: 07/25/24 Narrative: COLONOSCOPY TILL CECUM WITH SNARE POLYPECTOMY AND SUBMUCOSAL INJECTION Pre-op diagnosis: Surveillance of colon polyps. Post-op diagnosis:? Colon polyps, Diverticulosis, hemorrhoids Endoscopist:? Jake Roa MD Anesthesia:?MAC Consent: Indications for the procedure and potential complications of bleeding, perforation, reaction to medications and missed diagnosis were discussed with the patient and informed consent was obtained. Instrument: Olympus PCF H 190 L variable stiffness pediatric colonoscope Monitoring: Vital signs and clinical assessment, intermittent blood pressure monitoring, continuous EKG monitoring, Pulse oximetry and Carbon Dioxide monitoring were done throughout the procedure. Please see anesthesia flowsheet. Colon withdrawl time was 22 minutes. Procedure: The patient was placed in the left lateral decubitis position and pre-procedure medications were administered. After a digital rectal examination of the ano-rectum, the video colonoscope was inserted into the rectum and advanced through the colon to the cecum. The colonoscope was slowly withdrawn in a retrograde panoramic fashion and the colon mucosa was carefully examined including a retroflexed view of the rectum. Findings and interventions are described below. Procedure Difficulty: without difficulty Findings: Terminal Ileum: Not evaluated Cecum: A 10-12 mm flat polyp adjacent to the appendicular orifice. Polyp was raised with 3 cc of Eleview and removed with a stiff hot snare. Some bleeding noted at the polypectomy site which was treated with cautery using the snare tip with cessation Ascending Colon: Normal Transverse Colon: A 15 mm flat polyp at 60 cms. Polyp was raised with 1 cc of Eleview and removed with a stiff hot snare. Polypectomy site was marked with Endomark Descending Colon: Moderate diverticulosis Sigmoid Colon: Moderate diverticulosis Rectum: Normal Ano-rectum: Moderate internal hemorrhoids Colon preparation: Good after copious irrigation. [place] Bowel Preparation Scale Right colon; 2 Transverse colon: 2 Left colon; 2 (0 = Unprepared colon segment with mucosa not seen due to solid stool that cannot be cleared. 1 = Portion of mucosa of the colon segment seen, but other areas of the colon segment not well seen due to staining, residual stool and/or opaque liquid. 2 = Minor amount of residual staining, small fragments of stool and/or opaque liquid, but mucosa of colon segment seen well. 3 = Entire mucosa of colon segment seen well with no residual staining, small fragments of stool or opaque liquid) Impression and Post Procedure Diagnosis: Colonoscopy Findings: Two medium sized polyps were removed Moderate diverticulosis seen in the left colon Moderate hemorrhoids on retroflexed exam. Plan: I will send a letter with biopsy results Repeat Colonoscopy in 3-5 years if polyps are adenomatous and can discontinue screening colonoscopies if polyps are hyperplastic. (Dulcolax 10 mg daily x 3 days prior to next colonoscopy appt) Above findings were reviewed with the patient and relevant handouts were given and the discharge area.
[2024-07-25 13:06] VITALS: BP 97/54; PULSE 74; RESP 18; TEMP 36.3; O2SAT 98
[2024-07-25 13:21] VITALS: BP 115/75; PULSE 68; RESP 16; TEMP 36.3; O2SAT 97
== END 2024-07-25 14:19 | disposition home or self-care (01) ==
PROVIDERS: PCP Internal Medicine; Visit Provider Internal Medicine Gastroenterology
PROC: 0DJD8ZZ Inspection of Lower Intestinal Tract, Via Natural or Artificial Opening Endoscopic (ICD-10-PCS; CPT 45378; principal; 2024-07-25 12:00)
DX: Z12.11 Encounter for screening for malignant neoplasm of colon (principal); Z86.0101 Personal history of adenomatous and serrated colon polyps; D12.0 Benign neoplasm of cecum; D12.3 Benign neoplasm of transverse colon; K57.30 Diverticulosis of large intestine without perforation or abscess without bleeding; K64.8 Other hemorrhoids; K21.9 Gastro-esophageal reflux disease without esophagitis; K44.9 Diaphragmatic hernia without obstruction or gangrene; I10 Essential (primary) hypertension; E78.00 Pure hypercholesterolemia, unspecified; E04.1 Nontoxic single thyroid nodule; J45.909 Unspecified asthma, uncomplicated; G47.33 Obstructive sleep apnea (adult) (pediatric); E66.9 Obesity, unspecified; Z68.37 Body mass index [BMI] 37.0-37.9, adult; Z79.85 Long-term (current) use of injectable non-insulin antidiabetic drugs; Z79.899 Other long term (current) drug therapy; Z88.8 Allergy status to other drugs, medicaments and biological substances; Z98.890 Other specified postprocedural states; Z87.891 Personal history of nicotine dependence
CPT/HCPCS: 45385; 45381; 88305; J2003; J2704

== ENCOUNTER → 2024-07-25 10:28 | Outpatient (BNV) | payer MEDICARE, SELFPAY | PROVIDERS: PCP Internal Medicine; Visit Provider Internal Medicine Gastroenterology | DX: Z12.11 Encounter for screening for malignant neoplasm of colon (principal); Z86.0100 Personal history of colon polyps, unspecified; D12.0 Benign neoplasm of cecum; K63.5 Polyp of colon | CPT/HCPCS: 45381; 45385 ==

== ENCOUNTER 2024-09-07 11:18 | Outpatient (REF) | payer MEDICARE, SELFPAY ==
--- OUTSIDE RECORDS SUMMARY | 2024-09-07 12:20 | XMS_ITS | Clinical Summary ---
Author Organization [facility] it Address [address] [place] [address] Care Team Providers Care Manager Physical Name Role Phone Michelle Rosenberg MD Primary Care Provider [phone] Surgical History Surgery Date Site/Laterality Comments OTHER SURGICAL HISTORY PROCEDURE: [place] LAPT RPR PARAESOPH HIATAL HERNIA W/MESH Medical [...] Vaccine (2023-2 5 season) 2023 Influenza Vaccine (Season Ended) 2024 RSV Immunization Adult Patie nts (1 - 1-dose 75+ series) 08/25/2026 HIB [...] age to complete this topic Meningococcal B Vaccine Aged Out No l onger eligible based on patient's age to complete this topic RSV Immunization Patients Un yong 20 months Aged Out No longer eligible b ased on patient's age to complete this topic Varicella Vaccines Aged Out No longer eligible based on patient's age to complete this topic Advance Directives Documents on File Type Date Recorded Patient Almond Sorter Expl anation Health Care Decision (hx) 01/25/2013 AD AIKEN DIRECTIVE Health Care Decision (hx) 01/25/2013 AD AIKEN DIRECTIVE Health Care Decision (hx) 01/25/2013 AD AIKEN DIRECTIVE Health Care Decision (hx) 01/25/2013 AD AIKEN DIRECTIVE Health Care Decision (hx) 01/25/2013 AD AIKEN DIRECTIVE Health Care Decision (hx) 01/25/2013 AD AIKEN DIRECTIVE Care Teams Manager Physical Relationship Specialty Start Date End Date Michelle Rosenberg MD [address] [place] [address] [address] [facility] [place] [address] PCP - General 01/07/08
== END 2024-09-07 11:19 | disposition home or self-care (01) ==
LOC: HO.MAMMO 11:18
PROVIDERS: PCP Internal Medicine
DX: Z12.31 Encounter for screening mammogram for malignant neoplasm of breast (principal)
CPT/HCPCS: 77063; 77067

== ENCOUNTER → 2024-09-07 11:30 | Outpatient (BNV) | payer MEDICARE, SELFPAY | PROVIDERS: PCP Internal Medicine; Visit Provider Internal Medicine | DX: Z12.31 Encounter for screening mammogram for malignant neoplasm of breast (principal) | CPT/HCPCS: 77063; 77067 ==

== ENCOUNTER 2024-10-10 07:03 | Outpatient (REF) | payer MEDICARE, SELFPAY ==
--- OUTSIDE RECORDS SUMMARY | 2024-10-10 07:05 | XMS_ITS | Clinical Summary ---
Author Organization 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
[2024-10-10 07:14] LABS: MANUAL DIFF FLAG NO
[2024-10-10 07:56] LABS: Basophils Absolute Auto 0.1 X10*3/uL (0.0-0.2); Basophils Percent Auto 1.6 % (0-2); Eosinophils Absolute Auto 0.1 X10*3/uL (0.0-0.4); Eosinophils Percent Auto 1.9 % (0-4); Hematocrit 43.9 % (37.0-47.0); Hemoglobin 14.5 g/dl (12.0-16.0); Lymphocytes Absolute Auto 1.6 X10*3/uL (1.2-4.9); Lymphocytes Percent Auto 42.9 % (20-40); Mean Corpuscular Hemoglobin 30.5 pg (27.0-33.0); Mean Corpuscular Volume 92.2 fL (80.0-98.0); Mean Platelet Volume 8.7 fL (9.4-12.3); Monocytes Absolute Auto 0.4 X10*3/uL (0.1-1.2); Monocytes Percent Auto 10.5 % (2-11); Neutrophils Absolute Auto 1.6 x10*3/uL (2.0-8.3); Neutrophils Percent Auto 43.1 % (45-73); Platelet Count 299 X10*3/uL (160-400); Red Blood Count 4.76 X10*6/uL (4.20-5.50); Red Cell Distribution Width 13.2 % (11.0-16.0); White Blood Count 3.7 X10*3/uL (4.8-10.8)
[2024-10-10 08:08] LABS: Estimated Average Glucose 97 mg/dL
[2024-10-10 08:21] LABS: Alanine Aminotransferase 18 U/L (0-31); Albumin Level 4.1 g/dL (3.5-5.0); Alkaline Phosphatase 49 U/L (39-117); Anion Gap 11 (12-20); Aspartate Amino Transferase 22 U/L (5-31); Bilirubin Total 0.5 mg/dL (0.0-1.0); Blood Urea Nitrogen 14 mg/dL (9-16); Calcium 9.6 mg/dL (8.4-10.2); Carbon Dioxide 27 mmol/L (22-29); Chloride 107 mmol/L (96-108); Cholesterol 246 mg/dL (<200); Estimated Glomerular Filt Rate > 60; Glucose Random 88 mg/dL (60-115); HDL Cholesterol 66 mg/dL (>40); LDL Cholesterol Calculated 159 mg/dL (<100); Potassium 4.2 mmol/L (3.3-5.1); Sodium 141 mmol/L (135-145); Total Protein 6.4 g/dL (6.5-8.0); Triglycerides 105 mg/dL (<150)
[2024-10-10 08:30] LABS: TSH reflex Free T4 3.73 uIU/mL (0.32-4.0)
[2024-10-10 08:48] LABS: Vitamin B12 670 pg/mL (200-900)
== END 2024-10-10 07:04 | disposition home or self-care (01) ==
LOC: HO.LAB 07:03
DX: Z00.00 Encounter for general adult medical examination without abnormal findings (principal); R73.02 Impaired glucose tolerance (oral); E78.00 Pure hypercholesterolemia, unspecified
CPT/HCPCS: 36415; 80053; 80061; 82306; 82607; 82746; 83036; 84443; 85025

== ENCOUNTER 2024-10-13 14:26 | Outpatient (AMB) | payer MEDICARE, SELFPAY ==
[2024-10-13 14:32] VITALS: BP 116/88; PULSE 87; O2SAT 95
--- NOTE | 2024-10-13 14:32 | A.OFFPC_ITS ---
Vital Signs 10/13/24 14:32 Height 5 ft 3 in Weight 169 lb 2 oz BMI 30.0 BP 116/88 Blood Pressure Location Lt brachial Position Sitting Pulse 87 Pulse Source Pulse Oximeter Pulse Oximetry (%) 95 Oxygen Delivery Method Room Air Intake Visit Reasons: f/u HTN/HLD Residential Appliance Repair Technician Required: No Accompanied by: Self / Same As Patient Allergies atorvastatin (From LIPITOR) Allergy (Unknown, Verified 10/13/24 14:33) LEG CRAMPS simvastatin Allergy (Unknown, Verified 10/13/24 14:33) leg cramps Medication List - Last Reconciled 10/13/24 by Michelle Rosenberg MD acetaminophen (Tylenol) 325 mg PO Q6H PRN albuterol sulfate 2.5 mg inhalation Q4-6H PRN albuterol sulfate 90 mcg/actuation (ProAir HFA) 2 puffs inhalation Q4-6H PRN blood pressure monitor (Blood Pressure Kit) As directed [CPAP AUTO 5-15 cm H20 humidified Air As directed] fluticasone propion-salmeterol 250-50 mcg/dose (Advair Diskus) 1 inh inhalation BID multivitamin 1 tab PO DAILY oxybutynin chloride ER 5 mg PO DAILY pravastatin 80 mg PO DAILY 90 days tirzepatide 15 mg subcut QWEEK Tobacco use date assessed: 10/13/24 Fall risk assessment: No Falls in past year Last assessed Fall Risk: 10/13/24 Dental Screening Dental Screen Date: 10/13/24 Did you have a dental visit in the last 12 months?: Yes Did you have a dental problem in the last 6 months where you did not have access to dental care?: No Was dental information given to patient?: Patient has dentist [facility] Medical History Tubular adenoma of colon Obstructive sleep apnea Hypercholesterolemia Obesity GERD (gastroesophageal reflux disease) Hypertension Thyroid nodule Asthma Paraesophageal hernia Surgical History S/P thyroid biopsy History of esophagogastroduodenoscopy (EGD) History of colonoscopy History of arthroplasty of left knee History of knee replacement procedure of right knee History of section History of total abdominal hysterectomy and bilateral salpingo-oophorectomy History of ventral hernia repair Family History Father Prostate cancer Mother Lung cancer Breast cancer Son No problems noted. Social History Housing: Apartment Alcohol intake: current Alcohol intake frequency: holidays/special occasions only Comment: once a year 1-2 glass of wine Patient Tobacco Use Status: Former Tobacco user Tobacco use type: Cigarette Years Smoked: quit 1981, cannabis gummy occ e-Cigarette/Vaping Use: Never Used Second Hand Smoke Exposure: No service: No Current occupational status: retired Cognitive needs: No Hearing needs: No Vision needs: Yes Questionnaire PHQ-9 Over the last 2 weeks, how often have you been bothered by any of the following problems? 1. Little interest or pleasure in doing things: not at all 2. Feeling down, depressed, or hopeless: not at all 3. Trouble falling or staying asleep, or sleeping too much: several days 4. Feeling tired or having little energy: not at all 5. Poor appetite or overeating: not at all 6. Feeling bad about yourself - or that you are a failure or have let yourself or your family down: not at all 7. Trouble concentrating on things, such as reading the newspaper or watching television: not at all 8. Moving or speaking so slowly that other people could have noticed. Or the opposite - being so fidgety or restless that you have been moving around a lot more than usual: not at all 9. Thoughts that you would be better off or of hurting yourself in some way: not at all Total score: 1 Depression Screening Interpretation: Negative Depression Screening Done: Yes Source: Developed by Drs. Robbin Parada, Jumana Gibson, Willard Barber and colleagues, with an educational kelvin from [employer]. Thrive Questionnaire Date Thrive assessed: 10/13/24 I am a: Patient What is your living situation today?: I have a steady place to live Within the past 12 months, did the food you bought not last and you didn't have the money to get more?: Never true Within the past 12 months, did you worry whether your food would run out before you got money to buy more?: Never true Do you have trouble paying for medicines?: No Do you have trouble getting transportation to medical appointments?: No Do you have trouble paying your heating and electricity bill?: No Do you have trouble taking care of your child, family member or friend?: No Do you have trouble with day-to-day activities such as bathing, preparing meals, shopping, managing finances, etc.?: No Are you currently unemployed and looking for a job?: No Are you interested in more education?: No Please select the resources that you would like help with: None Currently or been in a relationship where the following occur: No concerns reported THRIVE Score: 0 AUDIT C Alcohol Use Questionnaire (AUDIT-C) 1. How often do you have a drink containing alcohol?: Monthly or less 2. How many drinks containing alcohol do you have on a typical day when you are drinking?: 1 or 2 3. How often do you have six or more drinks on one occasion?: Never Total Score: 1 BENJAMIN-7 AMB Questionnaire EBNJAMIN-7 Date BENJAMIN - 7 assessed: 10/13/24 Feeling nervous, anxious, or on edge: 0 = Not at all Not being able to stop or control worryin = Nearly every day Worrying too much about different things: 0 = Not at all Trouble relaxin = Not at all Being so restless that it is hard to sit still: 0 = Not at all Becoming easily annoyed or irritable: 0 = Not at all Feeling afraid as if something awful might happen: 0 = Not at all Total BENJAMIN-7 score (0-4 normal; 5-9 mild; 10-14 moderate; 15-21 severe): 3 Source: Developed by Drs. Robbin Parada, Jumana Gibson, Willard Barber and colleagues, with an educational kelvin from [employer]. Physical exam (Primary Care) Vital Signs: Last Vital Signs Pulse 87 10/13/24 14:32 BP 116/88 10/13/24 14:32 Pulse Ox 95 10/13/24 14:32 Oxygen Delivery Method Room Air 10/13/24 14:32 BMI result Body Mass Index 30.0 Tobacco/Smoking Status: Tobacco use Status Tobacco use date assessed 10/13/24 10/13/24 14:39 Patient Tobacco Use Status Former Tobacco user 10/13/24 14:39 Tobacco use type Cigarette 10/13/24 14:39 e-Cigarette/Vaping Use Never Used 10/13/24 14:39 PHQ-9: PHQ-9 Score PHQ-9: Total score 1 10/13/24 15:12 Depression Screening Interpretation: Negative Thrive Assessment: Date of Thrive Assessment Date Thrive assessed 10/13/24 10/13/24 14:39 Currently or been in a relationship where the following occur: No concerns reported Const General: alert; No acute distress Eyes Conjunctivae: conjunctivae normal Resp Auscultation: clear to auscultation bilaterally Cardio Rate: regular rate Rhythm: regular rhythm GI Inspection: Yes normal to inspection Extrem General: Yes normal to inspection and No edema Immunizations Tenivac (PF) 5 Lf unit-2 Lf unit/0.5 mL intramuscular syringe Performing Provider: Michelle Rosenberg MD [facility] [place] [facility] Administered by: LUBNA López on 10/13/24 15:12 Dose Route Admin Location Dispensed Lot Number Expiration Date [facility] Product Manufacturing Professional 0.5 mL IM Left Deltoid 0.5 mL [id number] 06/25/26 91879-550-50 [employer] Total Dispensed Waste 0.5 mL 0 % VIS Given Date VIS Provided VIS Publication Date 10/13/24 Single Vaccine 20 Eligibility Eligibility Date Funding Source Not [facility] Eligible 10/13/24 Private Coding Level of Care Code Est Pt Level 4 (88330) Complex EM visit Add On G2211 Diagnoses Hypercholesterolemia E78.00 Impaired glucose tolerance R73.02 Class 3 severe obesity due to excess calories with serious comorbidity and body mass index (BMI) of 40.0 to 44.9 in adult E66.01; Z68.41 Body mass index: BMI 40.0-44.9 Obesity classification: adult class 3 (BMI >= 40) Obesity type: due to excess calories Serious obesity comorbidity presence: with serious comorbidity Gastroesophageal reflux disease with esophagitis without hemorrhage K21.00 Esophagitis bleeding: without hemorrhage Esophagitis presence: with esophagitis Fatty liver K76.0 Obstructive sleep apnea G47.33 Assessment & Plan Assessment & Plan (1) Hypercholesterolemia: Code(s): E78.00 - Pure hypercholesterolemia, unspecified Category: Medical Plan: Avoid fried foods, chicken skin, eggs, butter margarine, pastries and meat. Be it pork or beef they have a lot of cholesterol LDL goal of less than 130, being change in the numbers. (2) Impaired glucose tolerance: Code(s): R73.02 - Impaired glucose tolerance (oral) Category: Medical Plan: Decrease the amount of carbohydrate intake, pasta, bread, rice and potatoes are all sugar and that is aside from all the sweet stuff, remember that fruits are good but they are Sweet also. (3) Obesity: Code(s): E66.9 - Obesity, unspecified Category: Medical Qualifiers: Body mass index: BMI 40.0-44.9 Obesity classification: adult class 3 (BMI >= 40) Obesity type: due to excess calories Serious obesity comorbidity presence: with serious comorbidity Qualified Code(s): E66.01 - Morbid (severe) obesity due to excess calories; Z68.41 - Body mass index [BMI]40.0-44.9, adult Plan: Diet and exercise (4) GERD (gastroesophageal reflux disease): Code(s): K21.9 - Gastro-esophageal reflux disease without esophagitis Category: Medical Qualifiers: Esophagitis bleeding: without hemorrhage Esophagitis presence: with esophagitis Qualified Code(s): K21.00 - Gastro-esophageal reflux disease with esophagitis, without bleeding Plan: Avoid the foods that causes that usually spicy foods, tomato products, juices, coffee, soda and foods that your sensitive to. After eating do not lie down, allow 3-4 hours before in lie down. And keep the head of bed above 30 degrees to avoid the acid from going up. (5) Fatty liver: Code(s): K76.0 - Fatty (change of) liver, not elsewhere classified Category: Medical Plan: Low-fat diet and exercise (6) Obstructive sleep apnea: Comment: (Moderate MICHELLE - AHI 11.9 - dx on Sleep test 01/26/2020 - on CPAP) Code(s): G47.33 - Obstructive sleep apnea (adult) (pediatric) Category: Medical Plan: Continue to use the CPAP more than 4 hours a night and benefits from this. Plan History of Present Illness The patient is a 74-year-old female presenting for a follow-up visit. The patient has a history of obesity and hypertension, for which she is on metoprolol with good tolerance. Her blood pressure was noted to be elevated during the visit. She has been diagnosed with hyperlipidemia, with recent blood work showing an LDL cholesterol level of 159 mg/dL, which is above the target goal of less than 130 mg/dL. The patient admitted to not taking her pravastatin regularly, which may have contributed to the increase in cholesterol levels. The patient underwent a colonoscopy in June 2020, which revealed a tubular adenoma, and she was advised to repeat the procedure in 3 to 5 years. She has a history of sleep apnea and was previously using a CPAP machine, but she has discontinued its use as she no longer experiences issues. The patient has made lifestyle changes, including weight loss, dietary modifications, and regular exercise, which she believes have positively impacted her health. Health Maintenance - Colonoscopy performed in June 2020, next due in 3 to 5 years - Mammogram is up to date - Vaccinations: Shingles vaccine received Social History - Exercise: Regular gym attendance and walking - Diet: Adheres to a low-fat diet and tracks caloric intake Review of Systems - Cardiovascular: Denies chest pain or palpitations - Respiratory: Denies dyspnea or wheezing - Gastrointestinal: Denies abdominal pain or changes in bowel habits - Neurological: Denies headaches or dizziness Physical Exam Results - Labs: LDL cholesterol 159 mg/dL, normal blood sugar, normal renal function, normal liver function, normal electrolytes - Colonoscopy: Tubular adenoma found, repeat in 3 to 5 years Plan The patient will resume taking pravastatin to manage her elevated LDL cholesterol levels, aiming to achieve the target goal of less than 130 mg/dL. She will continue her current lifestyle modifications, including diet and exercise, to support weight management and overall health improvement. Follow-up blood work will be conducted in six months to reassess cholesterol levels and ensure the effectiveness of the treatment plan. The patient is advised to maintain regular follow-up appointments to monitor her hypertension and other health conditions. Patient was informed and verbally consented to the use of an ambient scribe for clinic note documentation during this visit. Discussion Notes During the visit, I discussed with the patient the importance of resuming pravastatin to manage her hyperlipidemia and achieve the LDL cholesterol target. We reviewed her current lifestyle modifications, including diet and exercise, and emphasized their role in her overall health improvement. I advised her to continue these modifications and scheduled follow-up blood work in six months to monitor her cholesterol levels. Patient Instructions - Resume taking pravastatin as prescribed to manage cholesterol levels. - Continue with diet and exercise regimen to support weight management and health. - Schedule follow-up blood work in six months to check cholesterol levels. - Attend regular follow-up appointments to monitor health conditions. Orders: Orders Comprehensive Met. Panel 6 Months I10 - Essential (primary) hypertension Free T4 (Free Thyroxine) 6 Months I10 - Essential (primary) hypertension Hemoglobin A1c 6 Months I10 - Essential (primary) hypertension Thyroid Stimulating Hormone 6 Months I10 - Essential (primary) hypertension Vitamin B12 and Folate 6 Months I10 - Essential (primary) hypertension Td Immunization Today Z23 - Encounter for immunization Complete Blood Count Auto Diff 6 Months I10 - Essential (primary) hypertension Lipid Panel 6 Months E78.00 - Pure hypercholesterolemia, unspecified, I10 - Essential (primary) hypertension Vitamin D 25-OH Total 6 Months I10 - Essential (primary) hypertension Medications: Changed From oxybutynin chloride ER 5 mg PO DAILY 30 tabs 0RF N39.41 - Urge incontinence To oxybutynin chloride ER 5 mg (1/2 x 10 mg) PO DAILY 90 tabs 0RF N39.41 - Urge incontinence
--- OUTSIDE RECORDS SUMMARY | 2024-10-13 15:42 | XMS_ITS | Clinical Summary ---
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
== END 2024-10-13 15:11 | disposition home or self-care (01) ==
LOC: HO.HMCH 14:26
PROVIDERS: Visit Provider Internal Medicine
DX: E78.00 Pure hypercholesterolemia, unspecified (principal); R73.02 Impaired glucose tolerance (oral); E66.01 Morbid (severe) obesity due to excess calories; Z68.41 Body mass index [BMI] 40.0-44.9, adult; K21.00 Gastro-esophageal reflux disease with esophagitis, without bleeding; K76.0 Fatty (change of) liver, not elsewhere classified; G47.33 Obstructive sleep apnea (adult) (pediatric); Z23 Encounter for immunization

== ENCOUNTER → 2024-10-13 14:26 | Outpatient (BNVA) | payer MEDICARE, SELFPAY | PROVIDERS: Visit Provider Internal Medicine | DX: I10 Essential (primary) hypertension (principal); E78.00 Pure hypercholesterolemia, unspecified; R73.02 Impaired glucose tolerance (oral); E66.01 Morbid (severe) obesity due to excess calories; K21.9 Gastro-esophageal reflux disease without esophagitis; K76.0 Fatty (change of) liver, not elsewhere classified; G47.33 Obstructive sleep apnea (adult) (pediatric); N39.41 Urge incontinence; Z23 Encounter for immunization; Z68.41 Body mass index [BMI] 40.0-44.9, adult | CPT/HCPCS: 90471; 90714; 96127; 99212 ==